=== PATIENT | female | born 1955 | race Caucasian/White ===

== ENCOUNTER 2018-04-24 01:46 | Outpatient (CLI) | payer BC, SELFPAY ==
[2018-04-24 08:36] LABS: Hemoglobin A1C 6.2 % (4.5-6.2)
[2018-04-24 09:32] LABS: ALT 27 U/L (12-78); AST 14 U/L (15-37); Albumin 3.6 g/dL (3.4-5.0); Alkaline Phosphatase 74 U/L (46-116); Anion Gap 6.9 mmol/L (3-11); BUN 12 mg/dL (7-18); Bilirubin, Total 0.4 mg/dL (0.2-1.0); CO2 31.1 mmol/L (21.0-32.0); CREATININE 0.76 mg/dL (0.55-1.02); Calcium 9.2 mg/dL (8.5-10.1); Chloride 103 mmol/L (98-107); Cholesterol 166 mg/dL (50-200); Glucose 110 mg/dL (70-100); HDL Cholesterol 62 mg/dL (40-60); LDL CHOLESTEROL 83 mg/dL (<100); Potassium 4.1 mmol/L (3.5-5.1); Sodium 141 mmol/L (136-145); Total Protein 6.9 g/dL (6.4-8.2); Triglyceride 116 mg/dL (30-150)
== END 2018-04-24 02:06 ==
DX: Z00.00 Encounter for general adult medical examination without abnormal findings
CPT/HCPCS: 36415; 80053; 80061; 83721; 83036

== ENCOUNTER 2018-12-11 15:50 | Outpatient (CLI) | payer BC, SELFPAY ==
--- NOTE | 2018-12-11 16:00 | DI.RAD_ITS ---
SYMPTOM/DIAGNOSIS: LT KNEE INJURY S89.92XA LEFT KNEE: There is mild to moderate narrowing of the medial femoral tibial joint space and mild periarticular spurring. Mild spurring is seen at the tibial spines and lateral tibial plateau. There are also mild to moderate degenerative changes of the patellofemoral joint. IMPRESSION: Mild to moderate degenerative changes.
== END 2018-12-11 16:10 ==
PROVIDERS: Visit Provider Family Medicine
DX: S89.92XA Unspecified injury of left lower leg, initial encounter (principal); M25.562 Pain in left knee; M17.12 Unilateral primary osteoarthritis, left knee
CPT/HCPCS: 73562

== ENCOUNTER 2019-05-14 07:46 | Outpatient (CLI) | payer BC, SELFPAY ==
--- NOTE | 2019-05-14 11:03 | DI.MAMMO_ITS ---
EXAM: MG MAMMO SCREENING CLINICAL HISTORY: screening Z12.39 TECHNIQUE: Bilateral full field digital CC and MLO mammographic images were obtained with 3D tomosyn thesis and utilizing computer aided detection (CAD). COMPARISON: Available for comparison. FINDINGS: Masses/Architectural Distortion: None seen. There is a stable nodule in the upper outer quadrant of t he left breast. Microcalcifications: No suspicious pleomorphic-type are seen. Skin Thickening/Nipple Retraction: None. IMPRESSION: 1. No significant interval change with no specific features of malignancy noted. 2. Unless there is more urgent need, screening mammography is recommended, as per [employer] guidelines. ACR BI-RAD Category- 1 Negative Breast Density - Category B - Scattered areas of fibroglandular density A negative radiographic report should not delay biopsy if a dominant or clinically suspicious mass is present. Up to ten percent of cancers are not identified on mammography. A negative report may reinforce clinical impression. Adenosis and dense breasts may obscure an underlying neoplasm. False positive reports average 6 to 10%. Patient will receive a letter notifying them of these results.
== END 2019-05-14 08:06 ==
PROVIDERS: Visit Provider Nurse Practitioner
DX: Z12.31 Encounter for screening mammogram for malignant neoplasm of breast (principal)
CPT/HCPCS: 77063; 77067

== ENCOUNTER 2019-05-24 01:29 | Outpatient (CLI) | payer BC, SELFPAY ==
[2019-05-24 08:52] LABS: Hemoglobin A1C 6.5 % (4.5-6.2)
[2019-05-24 09:01] LABS: Calculated LDL 92 mg/dL; Cholesterol 180 mg/dL (<200); HDL Cholesterol 71 mg/dL (40-60); Triglyceride 88 mg/dL (<150)
== END 2019-05-24 01:49 ==
PROVIDERS: Visit Provider Nurse Practitioner
DX: E11.9 Type 2 diabetes mellitus without complications (principal); E78.00 Pure hypercholesterolemia, unspecified
CPT/HCPCS: 36415; 80061; 83036

== ENCOUNTER 2020-03-27 13:27 | Outpatient (CLI) | payer BC, SELFPAY ==
--- NOTE | 2020-03-27 09:30 | DI.RAD_ITS ---
EXAM: XR WRIST LT COMP NAVICULAR and XR thumb LT CLINICAL HISTORY: Thumb pain/swelling M79.646 PAIN IN THUMB. TECHNIQUE: 2D digital imaging was performed. COMPARISON: CR ARTHITIS SERIES-DARREN HAND WRIST from 05/06/2014 FINDINGS: BONES: No acute fracture is present. No bony destructive lesion is seen. JOINTS: The carpal bones are normally aligned. Marked degenerative changes are seen at the 1st CMC nura int characterized by joint space narrowing subchondral sclerosis and periarticular spurring. SOFT TISSUE: Normal. 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 Findings have advanced since the prior examination from 05/06/2014. DATA REPOSITORY: RADIATION DOSE DELIVERED:
== END 2020-03-27 13:47 ==
PROVIDERS: Visit Provider Nurse Practitioner Family
DX: M18.12 Unilateral primary osteoarthritis of first carpometacarpal joint, left hand (principal); M79.645 Pain in left finger(s)
CPT/HCPCS: 73110; 73140

== ENCOUNTER 2020-05-22 05:06 | Outpatient (CLI) | payer BC, SELFPAY ==
[2020-05-22 08:34] LABS: Hemoglobin A1C 6.2 % (<5.7)
[2020-05-22 08:58] LABS: Calculated LDL 85 mg/dL (<100); Cholesterol 166 mg/dL (<200); HDL Cholesterol 62 mg/dL (40-60); Triglyceride 97 mg/dL (<150)
[2020-05-22 22:45] LABS: Theophylline 4.8 ug/mL (10.0-20.0)
== END 2020-05-22 05:26 ==
PROVIDERS: Visit Provider Nurse Practitioner
DX: E11.9 Type 2 diabetes mellitus without complications (principal); E78.00 Pure hypercholesterolemia, unspecified; J45.909 Unspecified asthma, uncomplicated; Z51.81 Encounter for therapeutic drug level monitoring
CPT/HCPCS: 36415; 80061; 80198; 83036

== ENCOUNTER 2020-06-11 01:42 | Outpatient (CLI) | payer BC, SELFPAY ==
--- NOTE | 2020-06-11 06:30 | DI.MAMMO_ITS ---
EXAM: MAMMO SCREENING CLINICAL HISTORY: screening,Z12.39 TECHNIQUE: Mammograms were interpreted according to the usual protocol including computer analysis w [employer] CAD system, tomosynthesis and C-view imaging. COMPARISON: FINDINGS: The breasts are of moderate density with fairly symmetrical distribution fibroglandular tissue. No d ominant mass or clumped microcalcification is identified in either breast. The current examination i s compared with previous examinations including May 2019, a stable nodule is again noted in the upper outer quadrant of the left breast. No significant change is seen elsewhere in either breast. IMPRESSION: No specific evidence of malignancy at this time. Routine screening examinations are suggested at yea rly intervals due to the family history of breast carcinoma. BI-RADS Category 2 - Benign Findings Breast Density - Category B - Scattered areas of fibroglandular density
== END 2020-06-11 02:02 ==
PROVIDERS: PCP Nurse Practitioner; Visit Provider Nurse Practitioner
DX: Z12.31 Encounter for screening mammogram for malignant neoplasm of breast (principal); Z80.3 Family history of malignant neoplasm of breast
CPT/HCPCS: 77063; 77067

== ENCOUNTER 2020-07-29 03:08 | Outpatient (CLI) | payer BC, SELFPAY ==
[2020-07-30 13:28] LABS: COVID-19 RT-PCR UVMMC Result Negative (Negative)
== END 2020-07-29 03:09 | disposition home or self-care (01) ==
LOC: LBO 03:09
PROVIDERS: PCP Nurse Practitioner; Visit Provider Surgery
DX: Z20.822 Contact with and (suspected) exposure to COVID-19 (principal); Z01.818 Encounter for other preprocedural examination
CPT/HCPCS: U0003

== ENCOUNTER 2020-08-01 07:18 | Day surgery (SDC) | payer BC, SELFPAY ==
[2020-08-01 07:37] VITALS: BP 126/65; PULSE 72; RESP 16; TEMP 36.4; O2SAT 99
[2020-08-01] MEDS: Lactated Ringers 1,000 ML 80 ML IV (08:00)
--- NOTE | 2020-08-01 08:37 | W.PM.DSUDISC ---
Discharge Plan Disposition Patient Disposition: HOME Condition: Good Discharge Details Reason For Visit: colon scope Attending Provider: Jamila Sellers Primary Care Provider: Olesya Plaza Home Meds and New Rx's Prescriptions: Continued tetracycline 250 mg capsule 250 mg PO DAILY PRN (Reason: [place] - takes intermittently) Qty: 30 RF: 1 ipratropium-albuterol 0.5 mg-3 mg(2.5 mg base)/3 mL solution for nebulization 3 ml Inhalation Q6H PRN Qty: 1 RF: 0 albuterol sulfate [Ventolin HFA] 90 mcg/actuation HFA aerosol inhaler 2 puff inhalation QID PRN (Reason: shortness of breath or wheezing) Qty: 18 RF: 6 famotidine 10 mg tablet 10 mg PO BID Qty: 180 RF: 3 theophylline 400 mg tablet extended release 24 hr 400 mg PO DAILY Qty: 90 RF: 3 metformin 500 mg tablet extended release 24hr 500 mg PO DAILY Qty: 90 RF: 4 budesonide-formoterol [Symbicort] 160-4.5 mcg/actuation HFA aerosol inhaler 2 puff Inhalation BID Qty: 3 RF: 4 atorvastatin 20 mg tablet 20 mg PO DAILY Qty: 90 RF: 4 glucosamine sulfate [Glucosamine] 500 mg tablet 500 mg PO DAILY RF: 0 magnesium 30 mg tablet 60 mg PO DAILY RF: 0 (DME) blood-glucose meter 1 EACH misc 1 ea Miscellaneous twice weekly Qty: 1 RF: 0 (DME) Blood Glucose Test 1 EACH strip 1 ea Miscellaneous DAILY Qty: 100 RF: 3 (DME) lancets 1 EACH misc 1 ea Miscellaneous DAILY Qty: 100 RF: 3 Discontinued polyethylene glycol 3350 17 gram/dose powder 238 g PO ONCE Qty: 238 RF: 0 bisacodyl [Dulcolax (bisacodyl)] 5 mg tablet,delayed release (DR/EC) 5 mg PO ONCE Qty: 4 RF: 0 Discharge Instructions Additional Instructions: Findings:severe diverticula. small polyp Follow up:Will send a letter w/ results of the polyp in 3-4wks. You have severe diverticla. I would not recommend any further colon scopes. The risk of perforation out ways the benefits of routine screening. Please call if you develop: fevers >101.5 Nausea or Vomiting Abdominal pain that is not transient DAY SURGERY UNIT POST COLONOSCOPY INSTRUCTIONS 1. Because there will be medication in your system for the next 24 hours, you may feel a little sleepy. Your coordination will be affected. Therefore: a. Do not drive or operate dangerous equipment for 24 hours. b. Do not drink alcohol beverages for 24 hours (not even beer). c. Plan to go home and rest for the day. 2. Generally there are no restrictions on your activity after a day or so has gone by, but you may feel a bit fatigued for a few days. 3 After you arrive home you may have a light meal and return to a normal diet as you can tolerate it without feeling sick to your stomach. 4. After surgery, you may feel pain or discomfort. This should be only transient, but if it persists please contact your doctor. 5. If there are any questions regarding the findings of your procedure, please feel free to contact your doctor. 6. If you are unable to contact your doctor with a problem, contact the hospital at [phone]. 7. Continue all your regular medications unless directed otherwise. I understand the above instructions and have no questions. Signature of Patient or Responsible Adult Escort Date/Time Name of Responsible Adult Escort Signature of Nurse Date/Time DIVERTICULAR DISEASE OVERVIEW ? A diverticulum is a pouch-like structure that can form through points of weakness in the muscular wall of the colon (ie, at points where blood vessels pass through the wall). Diverticulosis affects men and women equally. The risk of diverticular disease increases with age. It occurs throughout the world but is seen more commonly in developed countries. WHAT IS DIVERTICULAR DISEASE? Diverticulosis ? Diverticulosis merely describes the presence of diverticula. Diverticulosis is often found during a test done for other reasons, such as flexible sigmoidoscopy, colonoscopy, or barium enema. Most people with diverticulosis have no symptoms and will remain symptom free for the rest of their lives. A person with diverticulosis may have diverticulitis, or diverticular bleeding. Diverticulitis ? Inflammation of a diverticulum (diverticulitis) occurs when there is thinning and breakdown of the diverticular wall. This may be caused by increased pressure within the colon or by hardened particles of stool, which can become lodged within the diverticulum. The symptoms of diverticulitis depend upon the degree of inflammation present. The most common symptom is pain in the left lower abdomen. Other symptoms can include nausea and vomiting, constipation, diarrhea, and urinary symptoms such as pain or burning when urinating or the frequent need to urinate. Diverticulitis is divided into simple and complicated forms. ?Simple diverticulitis, which accounts for 75 percent of cases, is not associated with complications and typically responds to medical treatment without surgery. ?Complicated diverticulitis occurs in 25 percent of cases and usually requires surgery. Complications associated with diverticulitis can include the following: ?Abscess ? a localized collection of pus ?Fistula ? an abnormal tract between two areas that are not normally connected (eg, bowel and bladder) ?Obstruction ? a blockage of the colon ?Peritonitis ? infection involving the space around the abdominal organ ?Sepsis ? overwhelming body-wide infection that can lead to failure of multiple organs Diverticular bleeding ? Diverticular bleeding occurs when a small artery located within a diverticulum is eroded and bleeds into the colon. Diverticular bleeding usually causes painless bleeding from the rectum. In approximately 50 percent of cases, the person will see maroon or bright red blood with bowel movements. Is bleeding with a bowel movement normal? ? It is not normal to see blood in a bowel movement; this can be a sign of several conditions, most of which are not serious (eg, hemorrhoids) but some of which are serious and require immediate treatment. Anyone who sees blood after a bowel movement should consult with their healthcare provider to determine if further testing or evaluation is needed. DIVERTICULOSIS AND DIVERTICULITIS DIAGNOSIS ? Diverticulosis is often found during tests performed for other reasons. ?Barium enema ? This is an x-ray study that uses barium in an enema to view the outline of the lower intestinal tract. This is an older test and has been largely replaced by computed tomography (CT) scan. ?Flexible sigmoidoscopy ? This is an examination of the inside of the sigmoid colon with a thin, flexible tube that contains a camera. ?Colonoscopy ? This is an examination of the inside of the entire colon. ?CT scan ? A CT scan is often used to diagnose diverticulitis and its complications. If diverticulitis (not just diverticulosis) is suspected, the above three tests should not be used because of the risk of perforation. TREATMENT Diverticulosis ? People with diverticulosis who do not have symptoms do not require treatment. However, most clinicians recommend increasing fiber in the diet, which can help to bulk the stools and possibly prevent the development of new diverticula, diverticulitis, or diverticular bleeding. Fiber is not proven to prevent these conditions in all patients but may help to control recurrent episodes in some. Increase fiber ? Fruits and vegetables are a good source of fiber. Fiber content of packaged foods can be calculated by reading the nutrition label. Seeds and nuts ? Patients with diverticular disease have historically been advised to avoid whole pieces of fiber (such as seeds, corn, and nuts) because of concern that these foods could cause an episode of diverticulitis. However, this belief is completely unproven. We do not suggest that patients with diverticulosis avoid seeds, corn, or nuts. Diverticulitis ? Treatment of diverticulitis depends upon how severe your symptoms are. Home treatment ? If you have mild symptoms of diverticulitis (mild abdominal pain, usually left lower abdomen), you can be treated at home with a clear liquid diet and oral antibiotics. However, if you develop one or more of the following signs or symptoms, you should seek immediate medical attention: ?Temperature >100.1?F (38?C) ?Worsening or severe abdominal pain ?An inability to tolerate fluids Hospital treatment ? If you have moderate to severe symptoms, you may be hospitalized for treatment. During this time, you are not allowed to eat or drink; antibiotics and fluids are given into a vein. If you develop an abscess of the colon, you may require drainage of the abscess (usually performed by placing a drainage tube across the abdominal wall) or by surgically opening the affected area. Surgery ? If you develop a generalized infection in the abdomen (peritonitis), you will usually require an emergency operation. A two-part operation may be necessary in some cases. ?The first operation involves removal of the diseased colon and creation of a colostomy. A colostomy is an opening between the colon and the skin, where a bag is attached to collect waste from the intestine. The lower end of the colon is temporarily sewed closed to allow it to heal. ?Approximately three to six months later, a second operation is performed to reconnect the two parts of the colon and close the opening in the skin. You are then able to empty your bowels through the rectum. Sometimes patients require up to a year to recover from the first operation, depending on how sick they were. In non-emergency situations, the diseased area of the colon can be removed and the two ends of the colon can be reconnected in one operation, without the need for a colostomy. Surgery versus medical therapy ? An operation to remove the diseased area of the colon may be necessary if you do not improve with medical therapy. After an episode of uncomplicated diverticulitis, elective surgery is generally not required as the risk of another attack or requiring emergency surgery is low. However, patients with persistent symptoms attributable to diverticulitis, a history of complicated diverticulitis, or a compromised immune system should be evaluated for possible surgery to prevent another attack. In such patients, another attack has been associated with a higher risk of complications or . Of course, the decision will also depend in part upon your other medical conditions and ability to undergo surgery. In many cases, an elective operation can be performed laparoscopically, using small incisions, rather than the typical vertical (up and down) abdominal incision. Laparoscopic surgery usually allows you to recover more quickly and shortens the hospital stay. After diverticulitis resolves ? After an episode of diverticulitis resolves, if you have not had a recent colonoscopy, the entire length of the colon should be evaluated to determine the extent of disease and to rule out the presence of abnormal lesions such as polyps or cancer. Recommended tests include colonoscopy, barium enema and sigmoidoscopy, or CT colonography. Diverticular bleeding ? Most cases of diverticular bleeding resolve on their own. However, some people will need further testing or treatment to stop bleeding, which may include a colonoscopy, angiography (a treatment that blocks off the bleeding artery), bleeding scan, or surgery. DIVERTICULAR DISEASE PROGNOSIS Diverticulosis ? Over time, diverticulosis may cause no problems or it may cause episodes of bleeding and/or diverticulitis. Approximately 15 to 25 percent of people with diverticulosis will develop diverticulitis, while 5 to 15 percent will develop diverticular bleeding. Diverticulitis ? Approximately 85 percent of people with uncomplicated diverticulitis will respond to medical treatment, while approximately 15 percent of patients will need an operation. After successful treatment for a first attack of diverticulitis, one-third of patients will remain asymptomatic, one-third will have episodic cramps without diverticulitis, and one-third will go on to have a second attack of diverticulitis. The prognosis tends to remain similar following a second attack of diverticulitis. Only 10 percent of people remain symptom-free after a second attack. Subsequent attacks tend to be of similar severity, not increasing in severity as previously believed. High Fiber Diet What is Dietary Fiber? All fiber comes from plants, bushes, rianna or trees. Of course, the ones that we eat provide us with fruits, vegetables and grains. There are many different types of fiber but the three that are most important to the health of the body are: Insoluble Fiber This fiber does not dissolve in water, nor is it fermented by the bacteria residing in the colon. Rather, it retains water and in so doing, helps to promote a larger, bulkier and more regular bowel activity. This, in turn, may be important in preventing disorder such as diverticulosis and hemorrhoids, and in sweeping out certain toxins and cancer causing carcinogens. Sources of insoluble fiber are: ? whole grain wheat and other whole grains ? corn bran, including popcorn, unflavored and unsweetened ? nuts and seeds ? potatoes and the skins from most fruits from trees such as apples, bananas and avocados ? many green vegetables such as green beans, zucchini, celery and cauliflower ? some fruit plants such as tomatoes and kiwi Soluble Fiber These fibers are fermented or used by the colon bacteria as a food source or nourishment. When these good bacteria grow and thrive, many health benefits occur in both the colon and the body. Soluble fiber is present in some degree in most edible plant foods, but the ones with the most soluble fiber include: ? legumes such as peas and most beans, including soybeans ? oats, rye and barley ? many fruits such as berries, plums, apples bananas and pears ? certain vegetables such as broccoli and carrots ? most root vegetables ? psyllium husk supplement products Prebiotic Soluble Fiber These are relatively newly discovered soluble plant fibers. The technical name for this fiber is inulin or fructan. When these soluble fibers are fermented by the good colon bacteria, some further significant health benefits have been shown to occur by research in many medical centers. These soluble prebiotic fibers occur in significant amounts in: ? asparagus ? yams ? onions ? garlic ? bananas ? leeks ? agave ? chicory and other root vegetables such as [place] artichokes ? wheat, rye and barley (smaller amounts) Benefits of a High Fiber Diet The health benefits of a high fiber diet, consumed on a regular basis and reaching recommended amounts (below), are now fairly well-defined. There are some additional benefits in the early research stage with the prebiotic soluble fibers. What is now known regarding a high fiber diet include: Bowel Regularity A high fiber diet promotes regularity with a softer, bulkier and regular stool pattern. This decreases the chance of hemorrhoids, diverticulosis and perhaps colon cancer. Cholesterol and Reduced Triglycerides The soluble fibers are the ones that will reduce cholesterol levels when used on a regular basis. Psyllium husk and prebiotic soluble fiber will also reduce cholesterol. They may also reduce the incidence of coronary heart disease. Oats, flax seeds and legumes or beans are the recommended fibers. Colon Polyps and Cancer It is still not certain if a high fiber diet helps prevent colon cancer. Considerable research suggests that this may occur. Certainly it makes sense to increase regularity and so speed the movement of cancer causing carcinogens through the bowel. In addition, reducing a heavy meat diet reduces the bile flow from the liver in a favorable way. This, too, reduces the amount of carcinogens that reach and are manufactured in the colon. Finally, a high fiber diet, including prebiotic soluble fiber, increases the integrity and health of the wall of the colon. The risk of cancer may be reduced. Colon Wall Integrity A high fiber diet changes the bacterial makeup of the colon toward a more favorable balance. For instance, it is known that those people with obesity, diabetes type 2 and inflammatory bowel disease have a predominance of bad bacteria in the colon. This, in turn, may render the bowel wall weak and allow bacteria and, indeed, even toxins to seep through. A high fiber diet with a modest reduction in animal and meat products may return the bacterial makeup to a more positive balance. This, in particular, has been seen when the soluble fiber prebiotics are added to the diet. Blood Sugar Soluble fiber such as in legumes (beans), oats and in prebiotic fibers slows the absorption of blood sugar and so helps regulate the sugar in the blood. Insoluble fiber on a regular basis is associated with reduced risk of type 2 diabetes. Weight Loss High fiber diets are more filling and give a sense of fullness sooner than an animal and meat based diet does. In addition, the soluble prebiotic fibers have been shown to turn off the hunger hormones produced in the wall of the gut and to increase the hormones that give a sense of fullness. Those hormones are made in the wall of the gut. New medical research has shown that the bacterial makeup in the colon in overweight people is abnormal to the extent that they manufacture and absorb almost twice the number of calories through the colon wall as do normals. Prebiotic fibers (below) will help change this hormonal balancein a favorable way. Bacteria and the Function of the Colon The colon finishes the digestive process. Hopefully, the waste products move through in a nice regular manner. Insoluble fibers help this process by retaining water and so producing a bulkier, softer stool, which is easy to pass. The additional role of the colon is to provide a home for an enormous number of micro-organisms, mostly bacteria. Recent research has shown that there are over 1,000 species of bacteria with a total bacterial count ten times the number of cells in the body. These bacteria play a major role in keeping the colon wall itself healthy. In addition, these good bacteria produce a very strong immune system for the body. They significantly increase calcium absorption and bone density. They provide other documented benefits. It is the soluble fibers in the diet that are so effective in stimulating the growth of good colon bacteria. How Much is Enough? The amount of fiber in food is measured in grams. National nutritional authorities recommend the following amounts of dietary fiber daily. Under Age 50 Over Age 50 Men 38 grams 30 grams Women 25 grams 21 grams For a week or so, it is best to tally the amount of fiber you are consuming. Boxed and packaged foods will have the amount of fiber per serving on the nutrition label. Which Fibers and Which Foods are Best? As noted, healthy fiber is only found in plants. The three major categories are whole grains, fruits and vegetables. Whole Grains Wheat, oats, barley, wild or brown rice, amaranth, buckwheat, bulgur, corn, millet, quinoa, rye, sorghum, teff and triticals. By far, wheat, oats and wild or brown rice are most common. Always buy whole grain products. White bread, baked goods and rolls almost always are made from wheat flour. Wheat flour is white because most of the fiber, vitamins and other nutrients have been removed. Try not buy enriched grains. What this means is that simple white flour has had vitamins added to it by the corporate risk analyst. The word, enriched, implies a good and healthy product. On the contrary, enriched means that most of the fiber has been removed and a few vitamins added. Fruits Fruits come from trees such as apple and pear or from bushes or rianna. You should eat a wide variety of fruits, preferably with every meal. In many cases, the skin of a fruit such as apple will contain much of the insoluble fiber while the pulp contains most of the soluble fiber. To the extent possible, buy organic fruits as these will have little or no pesticides. Always wash fruit. Vegetables Eat a wide variety of vegetables. They should be a mainstay of lunch and dinners. Frozen vegetables retain as much nutrition and fiber as fresh vegetables. As with fruit, try to buy organic to reduce any residual pesticide ingestion. Wash fresh vegetables thoroughly. Cruciferous vegetables such as broccoli, [place] sprouts and cauliflower contain certain chemicals such as sulforaphane. This substance has very strong anti-cancer properties and should be eaten frequently. Legumes, Beans, Peas and Soybeans These vegetables have plenty of soluble fiber and should be part of a varied vegetable intake. Beans, in particular, contain a certain type of fiber that may lead to harmless gas or bloating. Nuts and Seeds These are rich sources of fiber and are a good substitute for sweets such as candies and baked sweet goods. While nuts and seeds are rich in fiber, they also contain vegetable fat and so can and do add calories. Read the Labels As noted, fresh and frozen foods are usually better. They have good nutrition and few, if any, chemicals added to them. When buying packaged foods and, in particular grains, look for three things: ? The first word on the label should be whole, such as whole wheat or whole grain. ? Check out the calories and the amount of fiber in a serving. ? How many and what other additives or chemicals are added. Fewer is always better. Do you know what each additive does? Some are added not for the benefit of the package lift operator but rather for manufacturers. These could and do include sugar, artificial flavor, chemicals to prevent oxidation and spoilage, emulsifiers to blend the product. You have to be a marketing communication manager. Fiber Facts, Nuggets and Pearls ? For breakfast you can easily get the day started well by using a high fiber, whole grain cereal. Check the labels. Add fruit such as blueberries and bananas. If you are an egg eater, use whole wheat or grain toast. Adding wheat germ gives you a good fiber kick. ? Always use whole grain or wheat with rolls and sandwiches. Does your fast food store not have them? Perhaps you look elsewhere. Eating an occasional black crowe or veggie burger provides variety. ? Snacks should consist of fruit and/or nuts. While nuts are loaded with fiber, they are an energy rich food, meaning they have a lot of calories in a small packet. ? Fruit juices should contain pulp. Clear juices such as clear orange, pear or apple juice contain little fiber and have a lot of fructose. Prune juice is usually high in fiber. ? Homemade soups ? adding fresh or frozen vegetables to a chicken or vegetable stock is a good way to start homemade soup. ? Salads ? adding cooked and then chilled vegetables provide great flavoring to almost any salad. Remember, a wheat salad has lots of cooked corn in it. Small slices of apples or oranges and nuts such as chopped walnuts or sliced almonds always adds taste, variety and fiber to almost any salad. ? Fruit ? Try to eat fruit of some type with almost every meal. ? Rethink how you place the various foods on your dinner plate. Reducing the portions of the meat or animal food portion to the side with equal or more portions of vegetables, legumes and fruits portion always allows for more fiber. There was never anything magic about making the meat or animal food portion the main part of the dinner plate. Eating from smaller plates can, over time, trick your mind and terminal manager habit of using a dinner plate. Again, there is nothing magic in an 11, 12, or 13 inch dinner plate. Fiber Supplements There are a variety of fiber supplements available on the food or pharmacy shelves. Psyllium This soluble plant fiber has been used in [place] for over 2,000 years. It is a soluble fiber with mucilage in it. This acts to retain a lot of water and also is fermented by colon bacteria. When 7 grams a day are used, it does lower cholesterol. Metamucil in various forms is psyllium. Methyl Cellulose All the cellulose products come from finely ground wood chips which are then treated in a variety of ways such as boiling in acids. Methyl cellulose is an insoluble fiber which does dissolve in water. It is also an emulsifier, meaning it blends oils and water. Citrucel is methyl cellulose (MC). MC may not be appropriate for Crohn?s disease or ulcerative colitis as several medical studies have shown that certain emulsifiers dissolve the mucous lining of the colon in animals prone to Crohn?s disease. This then allows bacteria to invade the underlying tissue. Inulin Inulin is a soluble prebiotic fiber found in many foods and which are fermented mostly in the left side of the colon. It is available in a supplement as generic inulin and in Fiber Choice. Oligofructose FOS These are also prebiotic fibers. They are fermented very quickly in the right side of the colon. Prebiotin This product is a combination of oligofructose, which feeds the bacteria in the right side of the colon and inulin, which does the same in the left side of the colon. There seems to be a benefit for this particular formula based on medical research. Prebiotic Soluble Fiber These may be the healthiest of all the soluble fibers. They grow in many plants and have had a great deal of research done on them in the last 10-15 years. These fibers are found in asparagus, yams and other root vegetables such as chicory, garlic, onion, leeks and in smaller amounts in wheat. This research has shown the following: ? Increase in good and decrease in bad colon bacteria ? Increase calcium absorption and enhanced bone mass ? Enhanced immune system ? Appetite and weight control by changing the hormone appetite signals to the brain ? May decrease colon cancer incidence ? Reduce or correct a leaky colon Eating a wide variety of plant food up to the recommended amount will likely give you enough prebiotic fiber. Supplements such as Prebiotin can be added to the diet. Short Chain Fatty Acids (SCFA) Some rather remarkable research findings have shown that one of the benefits of ingesting a lot of soluble fiber, in particular the prebiotic ones, results in larger amounts of SCFAs in the colon. These SCFAs are made by the good bacteria in the colon such as Bifidobacter and Lactobacillus. These small molecules have been shown to do the following: ? Enhance the health and integrity of the colon wall ? Provide nourishment for the cells that actually line the colon ? Increases the acidity of the colon which is a very real health benefit ? Stabilize blood sugar for diabetics ? Reduce blood cholesterol and triglyceride ? Significantly enhance immunity ? May be a benefit for Crohn?s disease and ulcerative colitis patients Fiber and Gas Everyone has intestinal gas and that is a good thing. It means that bacteria, hopefully the good ones, are thriving. The normal amount of flatus passed each day depends on sex and what is eaten. The normal number of flatus is 10-20 times a day. When the bacteria that make intestinal gases are growing, it also means that other good bacteria are using the same fibers to grow and produce multiple health benefits, including the production of healthy short-chain fatty acids. These substances are produced quietly in the colon and produce many health-related outcomes. Soluble fiber should always be used in a gradual manner. If too much is consumed at any one time, then excess, but harmless, intestinal gas can occur. People with irritable bowel syndrome are particularly prone to bloating and mild cramping. In this instance, soluble fiber in the diet or supplement should be used in small doses and increased gradually. Finally, prebiotic fibers tend to cause the production of short-chain fatty acids which acidify the colon. This, in turn, reduces or stops the growth of bacteria that make the smelly hydrogen sulfide gases that produce noxious flatus. People who consume many vegetables with prebiotics or take a prebiotic fiber supplement often have non-odoriferous flatus. Fiber and Irritable Bowel Syndrome Irritable bowel syndrome (IBS) is one of the most common disorders of the lower digestive tract. The symptoms of IBS can be quite varied. They can be a mix of several symptoms such as constipation, diarrhea, crampy abdominal discomfort, bloating and gas. An attack of IBS can be triggered by emotional tension and anxiety, poor dietary habits and certain medications. It is now known that infections in the intestine can lead to long-term IBS symptoms. Increased amounts of fiber in the diet can help relieve the symptoms of irritable bowel syndrome by producing soft, bulky stools. This helps to normalize the time it takes for the stool to pass through the colon. Recent medical research with newer techniques has shown some surprising and dramatic findings for IBS patients. Specifically, there is a very significant and abnormal shift of bacteria from those that provide health benefits to those bad bacteria that we really do not want in the gut. The technical name for this bad group of bacteria is called Firmicutes. Along with this abnormal bacterial collection, there is a smoldering low-grade inflammation in the gut wall that may contribute to symptoms. The goal for IBS patients should be to gradually increase the soluble dietary fibers in the diet so as to promote the growth of good bacteria and so suppress the bad ones along with the associated inflammation. IBS patients need to be careful of the amount of soluble fiber they consume. The reason for this is that, while the good colon bacteria thrive on these fibers and produce health benefits, other gas-forming bacteria may generate excessive but harmless gas and subsequent bloating. Thus, soluble plant fibers or a dietary prebiotic supplement should be taken in small initial doses and then gradually increased to tolerance. Fiber and Colon Polyps/Cancer Colon cancer is a major health problem. This disease is most common in Western cultures. It is not seen very often in rural cultures where the diet is mostly plant based. Usually, colon cancer starts out as a colon polyp, a benign mushroom-shaped growth. In time it grows, and in some people it becomes cancerous. Colon cancer is usually always curable if polyps are removed when found or if surgery is performed at an early stage. It is now known that people can inherit the risk of developing colon cancer, but diet is important, too. As noted, there is a very low rate of colon cancer in residents of countries where grains are unprocessed and retain their fiber. It seems that in the Western world, cancer-containing agents (carcinogens) remain in contact with the colon wall for a longer time and in higher concentrations. So, a large bulky stool may act to dilute these carcinogens by moving them through the bowel more quickly. Less carcinogenic exposure to the colon may mean fewer colon polyps and less cancer. A very current review of the entire world?s literature on the effect of fiber on colon polyps and cancer prevention has shown rather clearly that for every 10 grams of fiber added to the diet, there is a 10% reduction in incidence of colon cancer. So the recommended 30 gram fiber diet would result in a 30% less chance of getting these tumors. There are also substances produced in the colon by the good bacteria that seem to retard certain pre-cancer factors from developing. They are called short-chain fatty acids (SCFA). See above for description of SCFAs. A high fiber diet increases these substances. So, the combination of dietary fiber and the production of short-chain fatty acids have a clear health benefit. Fiber and Diverticulosis Prolonged, vigorous contraction of the colon over a long period of time may result in diverticulosis. This increased pressure causes small and, eventually, larger ballooning pockets to form. These pockets by themselves cause no problem. However, sometimes they become infected (diverticulitis) or even break open (perforate) causing infection or inflammation within the abdomen (peritonitis). A high fiber diet increases the bulk in the stool and thereby reduces the pressure within the colon. By so doing, the formation of pockets may be reduced or possibly even stopped. In the past, many physicians were fearful that seeds as in tomatoes, nuts or berries were harmful and could get inside these pockets and rattle around, causing damage. We now know that this has never been the case and that these foods contain lots of fiber and are actually beneficial for diverticulosis patients. Certain bulking agents such as psyllium are traditional types of bulk producing supplements. Psyllium is a soluble fiber. Combining it with insoluble fiber as in wheat bran or corn bran (no gluten) can enhance this bulking effect even more. A product containing a prebiotic, psyllium and wheat bran is probably a very good combination for bowel regularity. Prebiotin Regularity/Diverticulosis is one such product. Activity:: no liting over 20#'s or strenuous activity x 24 hrs Diet:: small light meals x 24 hrs Discharge Orders Discharge Orders: Discharge Order (Routine); Ordered 08/01/20 Ordered By: Jamila Sellers DS: Diagnosis Discharge Diagnosis (1) Polyp of colon: Status: Acute
--- NOTE | 2020-08-01 08:55 | BOWEL_PTH ---
PATIENT: Josie Mosqueda LOC: [facility] U#:[id number] AGE/SX: 65/F ROOM: RE08/01/[address]: Jamila Sellers : 1955 BED: DIS: 08/01/2020 SPEC #: [id number] RECD: 08/01/20 10:03 STATUS: IRMA REQ #: [id number] LAURYN: 08/01/20 08:[address]: Jamila Sellers DEPT: Surgical Specimen RECD BY: Charla De Los Santos ENTERED: 08/01/20 10:05 SP TYPE: Bowel OTHR DR: Olesya Plaza, PhD [employer] TIER Tissues: 1 - BIOPSY BOWEL Procedures: GROSS AND MICRO LEVEL 4 Comments: [id number]
--- NOTE | 2020-08-01 09:21 | COLE_ITS ---
Date of service: 08/01/20 Time of Service: 09:26 Colonoscopy Report Date of procedure: 08/01/20 Pre-op diagnosis general: A. polyps Post-op diagnosis procedure note: same (divertic ) Surgeon: Jamila Sellers Anesthesia proc note operative: GETA Estimated blood loss (mL): 1 Pathology: other Complications: None Disposition: same day Prep: Miralax/Dulcolax Retraction Time: 10mins Procedure Description: After informed consent was obtained the patient was taken to the procedure room and placed in a left decubitous position. Monitors were applied and a time out was done. The patients name, date of , procedure, allergies to medications and metal in their body was reviewed. The patient was then sedated. Once sedated and comfortable a rectal exam was done. External exam was normal. Internal exam revealed a normal sphincter tone and no palpable masses. The scope was then introduced and retrofelexed. Grade I internal hemorrhoids were identified. The scope was then advanced to the cecum w/out difficulty. Th e TI and appendiceal orifice were identified. The prep was good. The scope was then slowly retracted over 10mins minutes back into the rectum. There is a small fatemeh polyp <5mm at cecum. That is removed w/ cold forcept in one bite. Shehas severe diverticula, that extend from the sigmoid all the way the ceum. ther is no active bleeding or infection. There are mult lg diverticula throughout the whole colon. The scope was removed and the patient was woken up and taken back to Same day surgery in stable condition. The patient tolerated the procedure well and there were no immediate comp lications. Follow up: The patient should not have any more routine screening colonoscopies, unless they develop changes in bowel habits or other new gastrointestinal complaints. Because of the severity of her diverticula, the benefits of routine screening do not outweigh the risks of perforation.
[2020-08-01 09:38] VITALS: BP 120/63; PULSE 67; RESP 16; TEMP 36; O2SAT 100
== END 2020-08-01 10:20 | disposition home or self-care (01) ==
PROVIDERS: PCP Nurse Practitioner; Visit Provider Surgery
PROC: 0DJD8ZZ Inspection of Lower Intestinal Tract, Via Natural or Artificial Opening Endoscopic (ICD-10-PCS; CPT 45378; principal; 2020-08-01 08:30)
DX: Z12.11 Encounter for screening for malignant neoplasm of colon (principal); D12.0 Benign neoplasm of cecum; Z86.010 Personal history of colon polyps; K21.9 Gastro-esophageal reflux disease without esophagitis; J45.909 Unspecified asthma, uncomplicated; E78.5 Hyperlipidemia, unspecified
CPT/HCPCS: 45378; 88305; J2001

== ENCOUNTER 2021-06-26 02:44 | Outpatient (CLI) | payer BC, SELFPAY ==
--- NOTE | 2021-06-26 07:30 | DI.DEXA_ITS ---
Exam(s) XR DEXA BONE DENSITY W/WO JOHNNY EXAM: XR DEXA BONE DENSITY W/WO JOHNNY CLINICAL HISTORY: screenING FOR OSTEOPOROSIS IN POSTMENOPAUSAL WOMAN,Z78.0 TECHNIQUE: Routine DEXA evaluation of the lumbar spine, hip, or forearm. COMPARISON: Prior DEXA scan 2010 was reviewed FINDINGS: Performed on a [employer] unit. Lateral image: No compression fracture evident. Lumbar Spine total T-score: -1.1. Prior 2011 reading was -1.4 Hip total T-score:0.2. Prior 2011 reading was 1.3 Independent reading at the level of the femoral neck yields at T-score of -2.1. Forearm total T-score: -2.7 IMPRESSION: Bone mineral density measures in the osteopenia range. Fracture risk is moderate. Note: Any spine fracture indicates 5x risk for subsequent spine fracture and 2x risk for subsequent h ip fracture. World Health Organization criteria for BMD interpretation classify patients: Normal...... T- Score at or above -1.0 Osteopenic... T- Score between -1.0 and -2.5 Osteoporosis... T-Score at or below -2.5
--- NOTE | 2021-06-26 13:33 | DI.MAMMO_ITS ---
Exam(s) MAMMO SCREENING EXAM: MAMMO SCREENING CLINICAL HISTORY: screening,Z12.39. TECHNIQUE: Bilateral full field digital CC and MLO mammographic images were obtained with 3D tomosyn thesis and utilizing computer aided detection (CAD). COMPARISON: Prior mammograms dating back to 2012, the most recent being May 2020. FINDINGS: No new significant radiograph findings in left breast. Stable benign-appearing nodule in the left br east is unchanged from prior studies. In the right breast there is a subtle suggestion nodule on 3D imaging located 5 cm from the nipple, l ateral of center the cc view and measuring approximately 5 x 4 millimeters. There are no malignant-appearing microcalcification groups is region or elsewhere in either breast. There is no significant architectural distortion nor skin thickening-retraction. IMPRESSION: 1. No radiographic evidence of malignancy in left breast. 2. Asymmetric density-possible nodule in the right breast, slightly medial of center. Spot compressi on CC view and ultrasound recommended. BI-RADS Category 0 - Assessment Incomplete: Need additional imaging evaluation Breast Density - Category B - Scattered areas of fibroglandular density Breast density Category C or D implies that the patient has dense breast tissue. Dense breast tissue can make it harder to find cancer on a mammogram. Dense breast tissue is also associated with an incr eased risk of breast cancer. This information about the result of the mammogram report was provided to the patient to raise their awareness. Use this report when you speak with the patient about their risks for breast cancer, which includes their family history. At that time, you may recommend additional screening tests (Ultrasoun d or MRI) as these tests may add significant information. A negative radiographic report should not delay biopsy if a dominant or clinically suspicious mass is present. Up to ten percent of cancers are not identified on mammography. A negative report may reinforce clinical impression. Adenosis and dense breasts may obscure an underlying neoplasm. False positive reports average 6 to 10%. Patient will receive a letter notifying them of these results.
== END 2021-06-26 03:04 ==
PROVIDERS: PCP Nurse Practitioner; Visit Provider Nurse Practitioner
DX: Z78.0 Asymptomatic menopausal state (principal); E11.9 Type 2 diabetes mellitus without complications; E78.00 Pure hypercholesterolemia, unspecified; Z12.31 Encounter for screening mammogram for malignant neoplasm of breast; Z13.820 Encounter for screening for osteoporosis; M85.89 Other specified disorders of bone density and structure, multiple sites; R92.8 Other abnormal and inconclusive findings on diagnostic imaging of breast
CPT/HCPCS: 77063; 77067; 77080

== ENCOUNTER 2021-06-30 01:11 | Outpatient (CLI) | payer BC, SELFPAY ==
--- NOTE | 2021-06-30 | DI.MAMMO_ITS ---
Exam(s) MG MAMMO SCREEN CALL BACK UNI US BREAST RT LIMITED EXAM: MG MAMMO SCREEN CALL BACK UNI RIGHT AND LIMITED RIGHT BREAST ULTRASOUND CLINICAL HISTORY: F/U MAMMO, SUBTLE SUGGESTION RT ONDULE,ASYMMETRIC DENSITY. TECHNIQUE: Unilateral spot mammographic images obtained with 3D tomosynthesisand utilizing computer aided detection (CAD). . Limited right breast Ultrasound was also performed. COMPARISON: Prior mammograms were reviewed. This additional imaging was performed due to findings described on the recent screening mammogram of 06/26/2021. FINDINGS: Additional mammographic view performed todayrender this area less concerning. Ultrasound performed today reveals no significant focal findings. IMPRESSION: No radiographic evidence of malignancy. No focal findings on ultrasound Appropriate follow-up is to keep this patient yearly mammogram schedule, with earlier imaging if a s elf detected breast change is noted. The patient was informed of these findings and recommendations prior to leaving the department today. BI-RADS Category 2 - Benign Findings Breast Density - Category B - Scattered areas of fibroglandular density Breast density Category C or D implies that the patient has dense breast tissue. Dense breast tissue can make it harder to find cancer on a mammogram. Dense breast tissue is also associated with an incr eased risk of breast cancer. This information about the result of the mammogram report was provided to the patient to raise their awareness. Use this report when you speak with the patient about their risks for breast cancer, which includes their family history. At that time, you may recommend additional screening tests (Ultrasoun d or MRI) as these tests may add significant information. A negative radiographic report should not delay biopsy if a dominant or clinically suspicious mass is present. Up to ten percent of cancers are not identified on mammography. A negative report may reinforce clinical impression. Adenosis and dense breasts may obscure an underlying neoplasm. False positive reports average 6 to 10%. Patient will receive a letter notifying them of these results.
== END 2021-06-30 01:31 ==
PROVIDERS: PCP Nurse Practitioner; Visit Provider Nurse Practitioner
DX: R92.8 Other abnormal and inconclusive findings on diagnostic imaging of breast (principal)
CPT/HCPCS: 76642; 77063; 77067

== ENCOUNTER 2022-06-08 10:02 | Outpatient (REF) | payer BC, SELFPAY ==
--- NOTE | 2022-06-08 09:00 | PAPFT_PTH ---
PATIENT: Josie Mosqueda LOC: [facility] #:[id number] AGE/SX: 66/F ROOM: RE06/08/[address]: Lily Malagon NP : 1955 BED: DIS: 06/08/2022 SPEC #: [id number] RECD: 06/08/22 12:47 STATUS: IRMA REFernando #: [id number] LAURYN: 06/08/22 09:[address]: Lily Malagon DEPT: [facility] Cytology RECD BY: Giovanna Alamo Tissues: 1 - CX/ENDOCX FOR PAP SMEARS Procedures: PAP THIN PREP/UVM Screening HPV DNA PROBE Comments: [id number]
== END 2022-06-08 10:03 | disposition home or self-care (01) ==
LOC: LBN 10:02
PROVIDERS: PCP Nurse Practitioner Family; Visit Provider Nurse Practitioner Family
DX: Z12.4 Encounter for screening for malignant neoplasm of cervix (principal); Z11.51 Encounter for screening for human papillomavirus (HPV); R87.810 Cervical high risk human papillomavirus (HPV) DNA test positive
CPT/HCPCS: 88142; 87624

== ENCOUNTER 2022-09-28 10:46 | Outpatient (REF) | payer BC, MEDICARE, SELFPAY ==
--- NOTE | 2022-09-28 08:15 | PAPFT_PTH ---
PATIENT: Josie Mosqueda LOC: [facility] #:[id number] AGE/SX: 67/F ROOM: RE09/28/[address]: Lily Malagon NP : 1955 BED: DIS: 09/28/2022 SPEC #: [id number] RECD: 09/28/22 13:04 STATUS: IRMA REFernando #: [id number] LAURYN: 09/28/22 08:[address]: Lily Malagon DEPT: [facility] Cytology RECD BY: Giovanna Alamo Tissues: 1 - CX/ENDOCX FOR PAP SMEARS Procedures: PAP THIN PREP/UVM Screening HPV DNA PROBE Comments: [id number] (HPV 16 & 18/45)
== END 2022-09-28 10:47 | disposition home or self-care (01) ==
LOC: LBN 10:46
PROVIDERS: PCP Nurse Practitioner Family; Visit Provider Nurse Practitioner Family
DX: Z12.4 Encounter for screening for malignant neoplasm of cervix (principal); Z11.51 Encounter for screening for human papillomavirus (HPV); R87.810 Cervical high risk human papillomavirus (HPV) DNA test positive
CPT/HCPCS: 88142; 87624

== ENCOUNTER 2023-03-07 02:21 | Outpatient (CLI) | payer BC, SELFPAY ==
[2023-03-07 12:26] LABS: Abs Immature Grans 0.02 10^3/uL (0.0-0.06); Absolute Basophil Count 0.04 10^3/uL (0.0-0.2); Absolute Eosinophil Count 0.17 10^3/uL (0.0-0.7); Absolute Lymphocyte Count 3.48 10^3/uL (1.2-3.4); Absolute Monocyte Count 0.57 10^3/uL (0.1-0.8); Absolute Neutrophil Count 3.07 10^3/uL (1.2-6.7); Basophils % 0.5; Eosinophils % 2.3; HCT 40.9 % (36.0-46.0); HGB 13.3 g/dL (11.2-15.7); Immature Grans % 0.3; Lymphocytes % 47.3; MCH 31.7 pg (27.0-33.0); MCHC 32.5 % (32.0-36.0); MCV 98 fL (80-95); MPV 9.9 fL (8.0-11.0); Monocytes % 7.8; Neutrophils % 41.8; Platelet Count 285 10^3/uL (130-400); RBC 4.19 10^6/uL (3.93-5.22); RDW 14.8 % (11.7-14.6); RDW-SD 53.4 fL; WBC 7.35 10^3/uL (4.4-10.8)
[2023-03-07 12:49] LABS: ALT 25 U/L (14-59); AST 16 U/L (15-37); Albumin 3.4 g/dL (3.4-5.0); Alkaline Phosphatase 72 U/L (46-116); Anion Gap 7.6 mmol/L (3-11); BUN 19 mg/dL (7-18); Bilirubin, Total 0.4 mg/dL (0.2-1.0); CO2 28.4 mmol/L (21.0-32.0); CREATININE 0.8 mg/dL (0.55-1.02); Calcium 9.3 mg/dL (8.5-10.1); Calculated LDL 150 mg/dL (<100); Chloride 103 mmol/L (98-107); Cholesterol 236 mg/dL (<200); Estimated GFR 81.72 (mL/min/1.73m2); Glucose 118 mg/dL (74-106); HDL Cholesterol 67 mg/dL (40-60); Potassium 3.8 mmol/L (3.5-5.1); Sodium 139 mmol/L (136-145); TSH (W/Ref FT4) 5.48 uIU/mL (0.36-3.74); Triglyceride 98 mg/dL (<150)
[2023-03-07 13:06] LABS: Hemoglobin A1C 6.2 % (<5.7)
[2023-03-07 13:48] LABS: FREE T4 0.93 ng/dL (0.76-1.46)
== END 2023-03-07 02:22 | disposition home or self-care (01) ==
LOC: LOS 02:21
PROVIDERS: PCP Nurse Practitioner Family; Visit Provider Nurse Practitioner Family
DX: E11.9 Type 2 diabetes mellitus without complications (principal); E78.00 Pure hypercholesterolemia, unspecified; J45.909 Unspecified asthma, uncomplicated; K21.00 Gastro-esophageal reflux disease with esophagitis, without bleeding; L71.9 Rosacea, unspecified; M19.90 Unspecified osteoarthritis, unspecified site; Z00.00 Encounter for general adult medical examination without abnormal findings
CPT/HCPCS: 36415; 80053; 80061; 83036; 84439; 84443; 85025

== ENCOUNTER → 2023-06-10 01:51 | Outpatient (CLI) | payer BC, SELFPAY ==
--- NOTE | 2023-06-10 09:00 | DI.MAMMO_ITS ---
Exam(s) MAMMO SCREENING EXAM: MAMMO SCREENING CLINICAL HISTORY: screening, Z12.39. TECHNIQUE: Bilateral full field digital CC and MLO mammographic images were obtained with 3D tomosyn thesis and utilizing computer aided detection (CAD). COMPARISON: Prior mammograms were reviewed. FINDINGS: There has been no significant change in the appearance and distribution of the fibroglandular tissue. Benign-appearing nodule lateral of center in left breast is unchanged from all prior mammograms datin g back to at least 2014. There are no new spiculated masses nor malignant appearing microcalcification groups. There is no significant architectural distortion nor skin thickening-retraction. IMPRESSION: No radiographic evidence of malignancy. BI-RADS Category 1 - Negative Breast Density - Category B - Scattered areas of fibroglandular density Breast density Category C or D implies that the patient has dense breast tissue. Dense breast tissue can make it harder to find cancer on a mammogram. Dense breast tissue is also associated with an incr eased risk of breast cancer. This information about the result of the mammogram report was provided to the patient to raise their awareness. Use this report when you speak with the patient about their risks for breast cancer, which includes their family history. At that time, you may recommend additional screening tests (Ultrasoun d or MRI) as these tests may add significant information. A negative radiographic report should not delay biopsy if a dominant or clinically suspicious mass is present. Up to ten percent of cancers are not identified on mammography. A negative report may reinforce clinical impression. Adenosis and dense breasts may obscure an underlying neoplasm. False positive reports average 6 to 10%. Patient will receive a letter notifying them of these results.
== END ==
PROVIDERS: PCP Nurse Practitioner Family; Visit Provider Nurse Practitioner Family
DX: Z12.31 Encounter for screening mammogram for malignant neoplasm of breast (principal)
CPT/HCPCS: 77063; 77067

== ENCOUNTER 2023-10-25 05:18 | Outpatient (CLI) | payer BC, SELFPAY ==
[2023-10-25 12:14] LABS: Abs Immature Grans 0.02 10^3/uL (0.0-0.06); Absolute Basophil Count 0.01 10^3/uL (0.0-0.2); Absolute Lymphocyte Count 1.53 10^3/uL (1.2-3.4); Absolute Monocyte Count 0.28 10^3/uL (0.1-0.8); Basophils % 0.2 %; HCT 41.5 % (36.0-46.0); HGB 13.4 g/dL (11.2-15.7); Immature Grans % 0.3 %; MCH 31.8 pg (27.0-33.0); MCHC 32.3 % (32.0-36.0); MCV 99 fL (80-95); MPV 9.9 fL (8.0-11.0); Monocytes % 4.2 %; Neutrophils % 72.3 %; Platelet Count 297 10^3/uL (130-400); RBC 4.21 10^6/uL (3.93-5.22); RDW-SD 54.6 fL; WBC 6.64 10^3/uL (4.4-10.8)
[2023-10-25 12:49] LABS: Anion Gap 8.9 mmol/L (3-11); BUN 12 mg/dL (7-18); CO2 28.1 mmol/L (21.0-32.0); CREATININE 0.8 mg/dL (0.55-1.02); Calcium 9.4 mg/dL (8.5-10.1); Chloride 105 mmol/L (98-107); Estimated GFR 81.21 (mL/min/1.73m2); Glucose 238 mg/dL (74-106); NT-proBNP 96 pg/mL (<300); Potassium 4.1 mmol/L (3.5-5.1); Sodium 142 mmol/L (136-145); TSH (W/Ref FT4) 2.24 uIU/mL (0.36-3.74)
[2023-10-25 13:48] LABS: Lab Add On Test DONE
[2023-10-25 14:17] LABS: Hemoglobin A1C 6.6 % (<5.7)
== END 2023-10-25 05:19 | disposition home or self-care (01) ==
LOC: LOS 05:18
PROVIDERS: PCP Nurse Practitioner Family; Visit Provider Nurse Practitioner Family
DX: E11.9 Type 2 diabetes mellitus without complications (principal); R06.09 Other forms of dyspnea
CPT/HCPCS: 36415; 80048; 83036; 83880; 84443; 85025

== ENCOUNTER 2024-05-31 02:45 | Outpatient (CLI) | payer BC, SELFPAY ==
[2024-05-31 08:01] LABS: HCT 41.3 % (36.0-46.0); HGB 13.3 g/dL (11.2-15.7); MCH 31.9 pg (27.0-33.0); MCHC 32.2 % (32.0-36.0); MCV 99 fL (80-95); MPV 9.1 fL (8.0-11.0); Platelet Count 239 10^3/uL (130-400); RBC 4.17 10^6/uL (3.93-5.22); RDW 14.5 % (11.7-14.6); RDW-SD 52.5 fL; WBC 7.53 10^3/uL (4.4-10.8)
[2024-05-31 08:16] LABS: Hemoglobin A1C 6.3 % (<5.7)
[2024-05-31 08:40] LABS: ALT 23 U/L (14-59); AST 10 U/L (15-37); Albumin 3.5 g/dL (3.4-5.0); Alkaline Phosphatase 71 U/L (46-116); Anion Gap 5.6 mmol/L (3-11); BUN 13 mg/dL (7-18); Bilirubin, Total 0.47 mg/dL (0.2-1.0); CO2 32.4 mmol/L (21.0-32.0); CREATININE 0.8 mg/dL (0.55-1.02); Calcium 9.4 mg/dL (8.5-10.1); Calculated LDL 77 mg/dL (<100); Chloride 105 mmol/L (98-107); Cholesterol 178 mg/dL (<200); Estimated GFR 81.21 (mL/min/1.73m2); Glucose 124 mg/dL (74-106); HDL Cholesterol 74 mg/dL (40-60); Potassium 3.9 mmol/L (3.5-5.1); Sodium 143 mmol/L (136-145); Total Protein 6.9 g/dL (6.4-8.2); Triglyceride 135 mg/dL (<150)
== END 2024-05-31 02:46 | disposition home or self-care (01) ==
PROVIDERS: PCP Nurse Practitioner Family; Visit Provider Nurse Practitioner Family
DX: Z00.00 Encounter for general adult medical examination without abnormal findings (principal); E78.00 Pure hypercholesterolemia, unspecified; E11.9 Type 2 diabetes mellitus without complications
CPT/HCPCS: 36415; 80053; 80061; 85027; 83036

== ENCOUNTER 2024-06-12 01:28 | Outpatient (CLI) | payer BC, SELFPAY ==
--- NOTE | 2024-06-12 06:30 | DI.RAD_ITS ---
Exam(s) XR HIP RT COMPLETE AP PELVIS EXAM: XR HIP RT COMPLETE AP PELVIS CLINICAL HISTORY: chronic rt hip pain,m25.551. TECHNIQUE: 2D digital imaging was performed. Two views COMPARISON: No exams were available for comparison FINDINGS: BONES: No acute fracture is present. No bony destructive lesion is seen. Enthesophytes at the greater trochanters and left lesser trochanter. JOINTS: No dislocation present. Moderate to severe narrowing of the right hip joint space. Periart icular spurring. Subchondral cyst formation. The left hip joint space is maintained. SOFT TISSUE: Normal. 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 DATA REPOSITORY: RADIATION DOSE DELIVERED:
== END 2024-06-12 01:48 ==
LOC: DI 01:28
PROVIDERS: PCP Nurse Practitioner Family; Visit Provider Nurse Practitioner Family
DX: M16.11 Unilateral primary osteoarthritis, right hip (principal)
CPT/HCPCS: 73502

== ENCOUNTER 2024-06-18 08:22 | Emergency (ER) | payer MEDICARE, OTHER, SELFPAY ==
[2024-06-18] VITALS (21 sets, daily range): BP systolic 148–170; BP diastolic 69–80; PULSE 66–85; RESP 20; TEMP 36.4; O2SAT 92–98
--- NOTE | 2024-06-18 08:45 | DI.CT_ITS ---
Exam(s) CT CHEST/ABD/PEL W EXAM: CT CHEST/ABD/PEL W CLINICAL HISTORY: lt sternal, flank pain, LUQ, and rib pain pst fall TECHNIQUE: Imaging Protocol: Axial computed tomography images with coronal and sagittal reformatted images were created and reviewed. Lung Computer Aided Detection (CAD) was utilized. CONTRAST MATERIAL: Intravenous: Omnipaque 350 contrast volume:75 mL Oral: No COMPARISON: No exams were available for comparison FINDINGS: CHEST: Tracheobronchial tree: Patent where visualized. No evidence of bronchiectasis. Pulmonary parenchyma: No consolidation or dominant measurable mass. No architectural distortion. Visualized thyroid gland: Unremarkable. Mediastinum and Alexandra: No dominant adenopathy or fluid collection. The esophagus is unremarkable. Pleura: No effusion or pneumothorax. Heart: The heart is not dilated. Single-vessel coronary artery calcification is present. No pericard ial effusion. Pulmonary arteries: Due to the timing of the bolus, there is suboptimal evaluation of the peripheral pulmonary arteries. No large central pulmonary embolism is present. Aorta: Thoracic aorta non-dilated. No evidence of dissection. Atherosclerotic calcification is prese nt. Lymph nodes: Within normal limits. Soft tissues: Unremarkable. Bones:Within normal limits for the patient's age. There is some irregularity of the cortices of the anterior aspects of the left 4th, 5th and 6th rib suspicious for nondisplaced fractures. There is no evidence of a sternal fracture. ABDOMEN: Liver: Normal density. No measurable mass. Portal, Superior Mesenteric, and Splenic Veins: Unremarkable. Gallbladder and Biliary Tract: No radiodense calculus or dilation. Pancreas: Normal density, no abnormal calcifications or inflammatory process. There is a 2.3 cm cyst in the tail of the pancreas. Nonemergent MRI of the pancreas is recommended for further evaluation. Spleen: Normal. Adrenals: No masses seen. Kidneys: Normal size, contour and axis. No radiodense stones or obstructive uropathy. No masses seen. Note is made of a retroaortic left renal vein. Abdominal Aorta: Abdominal portion non-dilated. Atherosclerotic calcification is present. Bowel: There is diverticulosis of the colon without evidence of acute diverticulitis. There is no estrada wel wall thickening or obstruction. Appendix is unremarkable. Peritoneal Cavity: No ascites, collection or mesenteric inflammatory response. No free air. Lymph Nodes: Within normal limits. Bones: Within normal limits for the patient's age. Soft Tissues: Unremarkable. PELVIS: Bladder: Symmetric distention, no gross wall thickening. Reproductive Organs: Unremarkable as visualized. Lymph Nodes: Within normal limits. Bones: Within normal limits. IMPRESSION: 1. Irregularity the cortex of the anterior aspect of the left 4th, 5th and 6th ribs suspicious for no ndisplaced fractures. No evidence of a pneumothorax or pleural effusion. 2. No acute pulmonary process. 3. No acute abdominal or pelvic process. 4. 2.3 cm cyst in the tail of the pancreas. Nonemergent MRI of the pancreas is recommended for [facility] er evaluation. Unexpected findings RADIATION DOSE DELIVERED: 600.86mGy.cm Total DLP DATA REPOSITORY: All CT scans at this facility are submitted to the National Radiology Data Registry (NRDR) Dose Index Registry (DIR) with the [employer] [place] [employer] (ACR). RADIATION OPTIMIZATION: All CT scans at this facility use at least one of these dose optimization te chniques: automated exposure control; mA and/or kV adjustment per patient size (includes targeted exa ms where dose is matched to clinical indication); or iterative reconstruction.
[2024-06-18] MEDS: Normal Saline - Diluent 50 ML VIAL IJ (09:10)
[2024-06-18 09:11] LABS: Abs Immature Grans 0.05 10^3/uL (0.0-0.06); Absolute Basophil Count 0.02 10^3/uL (0.0-0.2); Absolute Eosinophil Count 0.01 10^3/uL (0.0-0.7); Absolute Lymphocyte Count 2.13 10^3/uL (1.2-3.4); Absolute Neutrophil Count 8.06 10^3/uL (1.2-6.7); Basophils % 0.2 %; Eosinophils % 0.1 %; HCT 39.2 % (36.0-46.0); HGB 13.1 g/dL (11.2-15.7); Immature Grans % 0.4 %; Lymphocytes % 18.9 %; MCH 32.5 pg (27.0-33.0); MCHC 33.4 % (32.0-36.0); MCV 97 fL (80-95); MPV 9.7 fL (8.0-11.0); Monocytes % 8.9 %; Neutrophils % 71.5 %; Platelet Count 254 10^3/uL (130-400); RBC 4.03 10^6/uL (3.93-5.22); RDW 14.6 % (11.7-14.6); RDW-SD 53.1 fL; WBC 11.27 10^3/uL (4.4-10.8)
[2024-06-18] MEDS: Omnipaque 350 MG/ML 100 ML BTL 75 ML IJ (09:11)
[2024-06-18] MEDS: ACETAMINOPHEN 500 MG/50 ML BAG 200 MG IVPB (09:17)
[2024-06-18] MEDS: MORPHine 10 MG/ML VIAL 2 MG IVP (09:18)
[2024-06-18 09:44] LABS: ALT 26 U/L (14-59); AST 16 U/L (15-37); Albumin 3.5 g/dL (3.4-5.0); Alkaline Phosphatase 67 U/L (46-116); Anion Gap 5.3 mmol/L (3-11); BUN 15 mg/dL (7-18); CO2 30.7 mmol/L (21.0-32.0); CREATININE 0.8 mg/dL (0.55-1.02); Chloride 106 mmol/L (98-107); Estimated GFR 81.21 (mL/min/1.73m2); Glucose 161 mg/dL (74-106); Lipase 25 U/L (<78); Potassium 3.4 mmol/L (3.5-5.1); Sodium 142 mmol/L (136-145); Total Protein 7.1 g/dL (6.4-8.2)
--- NOTE | 2024-06-18 09:45 | RT.EKG_ITS ---
APPROVED REPORT Exam: Resting ECG Reason for Exam: chest pain Patient Location: E HR:67 bpm ECG Measurements Heart Rate 67 AXIS PA 161 P 40 QRSd 82 QRS 31 QT 412 T 36 QTc 436 Conclusion Sinus rhythm...normal P axis, V-rate 60- 99 I have reviewed and interpreted ECG and agree with software generated interpretation.
--- NOTE | 2024-06-18 09:45 | ED.GENADUL_ITS ---
Discharge Plan Disposition Patient Disposition: Home Discharge Details Clinical Impression: Multiple rib fractures, Cyst of pancreas Primary Care Provider: Lily Malagon ED Provider: Giovanna Hinson Home Meds and New Rx's Prescriptions: New morphine 15 mg tablet 15 mg PO BID PRNQty: 10 0RF Continued albuterol sulfate [Ventolin HFA] 90 mcg/actuation HFA aerosol inhaler 2 puff inhalation QID PRN (Reason: shortness of breath or wheezing) Qty: 8.5 6RF atorvastatin 20 mg tablet 20 mg PO QHS Qty: 90 3RF budesonide-formoterol [Symbicort] 160-4.5 mcg/actuation HFA aerosol inhaler 2 puff Inhalation BID Qty: 3 4RF ipratropium-albuterol 0.5 mg-3 mg(2.5 mg base)/3 mL solution for nebulization 3 ml Inhalation Q6H PRN Qty: 1 0RF metformin 500 mg tablet extended release 24hr 500 mg PO DAILY Qty: 90 4RF tetracycline 250 mg capsule 250 mg PO DAILY PRN (Reason: Roseacia - takes intermittently) Qty: 30 1RF theophylline 400 mg tablet extended release 24 hr 400 mg PO DAILY Qty: 90 4RF Rx Instructions: Note change from twice a day dosing to once a day. furosemide 20 mg tablet 20 mg PO QAM PRN (Reason: edema) Qty: 30 1RF glucosamine sulfate [Glucosamine] 500 mg tablet 500 mg PO DAILY Rx Instructions: administer with a meal magnesium 30 mg tablet 60 mg PO DAILY (DME) blood-glucose meter 1 EACH misc 1 ea Miscellaneous twice weekly Qty: 1 Rx Instructions: FOR ONE TOUCH ULTRA MINI DIAGNOSIS CODE 250.02 (DME) Blood Glucose Test 1 EACH strip 1 ea Miscellaneous DAILY Qty: 100 Rx Instructions: FOR ONE TOUCH ULTRA MINI METER. PT DOES NOT USE INSULIN. DIAGNOSIS CODE 250.02 (DME) lancets 28 gauge misc 1 ea Miscellaneous DAILY Qty: 100 3RF Rx Instructions: delica- NO INSULIN. DIAGNOSIS CODE 250.02 once daily prednisone 20 mg tablet 40 mg PO DAILY Patient Comments: TAKE TWO TABLETS BY MOUTH EVERY DAY FOR 5 DAYS Discharge Instructions Instructions: Rib fractures in adults Additional Instructions: Use the spirometer at least 12 times daily Take the morphine as needed for pain motrin/ tylenol for pain control Make sure you take full inhalation exhalation at least 12 hours a day with the spirometer Return with worsening shortness of breath, fever, chills, or with any new or worsening complaints Please follow-up with your primary care physician in 1 to 2 days for reassessment Continue on all your asthma medications present he is what he wanted Referrals: Lily Malagon NP [Primary Care Provider] - 2 days Discharge Data Discharge Date/Time-TO BE ENTERED AT DEPARTURE: 06/18/24 11:36 HPI General Date/Time Provider Initiated Documentation: 06/18/24 08:33 . HPI Narrative: This 68-year-old female presents with report of headache rib pain after a fall. Patient fell on 16 June of her stool and landing on her stomach and left side. She has had worsening pain since that time and has a history of asthma so was concerned as she has had some trouble breathing. She denies any head injury or any additional complaints at this time. She denies any hemoptysis. Related Data Home Medications ?Medication ?Instructions ?Recorded ?Confirmed blood sugar diagnostic (Blood #100 strips 06/10/14 06/18/24 Glucose Test strips) blood-glucose meter #1 ea 06/10/14 06/18/24 glucosamine sulfate 500 mg tablet 500 mg PO DAILY 07/18/20 06/18/24 (Glucosamine) magnesium 30 mg tablet 60 mg PO DAILY 07/18/20 06/18/24 lancets 28 gauge #100 ea 04/10/21 06/18/24 albuterol sulfate 90 mcg/actuation 2 puff inhalation QID PRN 06/11/24 06/18/24 aerosol inhaler (Ventolin HFA) shortness of breath or wheezing #8.5 grams atorvastatin 20 mg tablet 20 mg PO QHS #90 tabs 06/11/24 06/18/24 budesonide-formoterol HFA 160 2 puff inhalation BID ##3 06/11/24 06/18/24 mcg-4.5 mcg/actuation aerosol inhaler (Symbicort) furosemide 20 mg tablet 20 mg PO QAM PRN edema #30 tabs 06/11/24 06/18/24 ipratropium 0.5 mg-albuterol 3 mg 3 ml inhalation Q6H PRN ##1 06/11/24 06/18/24 (2.5 mg base)/3 mL nebulization soln metformin 500 mg tablet,extended 500 mg PO DAILY #90 tab-caps 06/11/24 06/18/24 release 24hr (osmotic) tetracycline 250 mg capsule 250 mg PO DAILY PRN Roseacia - 06/11/24 06/18/24 takes intermittently #30 tab-caps theophylline 400 mg 400 mg PO DAILY #90 tab-caps 06/11/24 06/18/24 tablet,extended release 24 hr morphine 15 mg immediate release 15 mg PO BID PRN #10 tabs 06/18/24 tablet prednisone 20 mg tablet 40 mg PO DAILY 06/18/24 06/18/24 Previous Rx's ?Medication ?Instructions ?Recorded lancets 28 gauge #100 ea 04/10/21 albuterol sulfate 90 mcg/actuation 2 puff inhalation QID PRN 06/11/24 aerosol inhaler (Ventolin HFA) shortness of breath or wheezing #8.5 grams atorvastatin 20 mg tablet 20 mg PO QHS #90 tabs 06/11/24 budesonide-formoterol HFA 160 2 puff inhalation BID ##3 06/11/24 mcg-4.5 mcg/actuation aerosol inhaler (Symbicort) furosemide 20 mg tablet 20 mg PO QAM PRN edema #30 tabs 06/11/24 ipratropium 0.5 mg-albuterol 3 mg 3 ml inhalation Q6H PRN ##1 06/11/24 (2.5 mg base)/3 mL nebulization soln metformin 500 mg tablet,extended 500 mg PO DAILY #90 tab-caps 06/11/24 release 24hr (osmotic) tetracycline 250 mg capsule 250 mg PO DAILY PRN Roseacia - 06/11/24 takes intermittently #30 tab-caps theophylline 400 mg 400 mg PO DAILY #90 tab-caps 06/11/24 tablet,extended release 24 hr morphine 15 mg immediate release 15 mg PO BID PRN #10 tabs 06/18/24 tablet Allergies Allergy/AdvReac Type Severity Reaction Status Date / Time carbamide peroxide (From Allergy Intermediate horne my Verified 06/18/24 08:33 Debrox) ear and gives me an ear infection General Stated Complaint: Fall/Non TraumaCriteria STACI: 3 Exam Narrative Exam Narrative: 68-year-old female presenting in acute distress, splinting left ribs, tenderness over sternum, lungs clear to auscultation bilaterally, no visible signs of trauma to head, alert and oriented x 4, no hip or shoulder tenderness, no sig nificant right upper quadrant tenderness mild left upper quadrant tenderness, no CVA tenderness, no bruising to abdomen or thorax, ecchymosis to left knee, nontender, neurovascularly intact Course Vital Signs Vital signs: Vital Signs Temperature 36.4 C 06/18/24 08:25 Pulse 85 06/18/24 08:25 Respiratory Rate 20 06/18/24 08:25 Blood Pressure 157/80 H 06/18/24 08:25 Pulse Oximetry 98 06/18/24 08:25 Temperature 36.4 C 06/18/24 08:25 Temperature Source Oral 06/18/24 08:25 Pulse 85 06/18/24 08:25 Respiratory Rate 20 06/18/24 08:25 Blood Pressure 157/80 H 06/18/24 08:25 Blood Pressure Position Sitting 06/18/24 08:25 Pulse Oximetry 98 06/18/24 08:25 Oxygen Delivery Method Room Air 06/18/24 08:25 Oxygen Flow Rate 0 06/18/24 08:25 Pain Level 10 06/18/24 08:37 Lab/Test Results Lab/Test Results: Laboratory Tests Range/Units 06/18/24 09:00 WBC (4.4-10.8) 10^3/uL 11.27 H RBC (3.93-5.22) 10^6/uL 4.03 Hgb (11.2-15.7) g/dL 13.1 Hct (36.0-46.0) % 39.2 MCV (80-95) fL 97 H MCH (27.0-33.0) pg 32.5 MCHC (32.0-36.0) % 33.4 RDW (11.7-14.6) % 14.6 Plt Count (130-400) 10^3/uL 254 MPV (8.0-11.0) fL 9.7 Immature Gran % % 0.4 Neutrophils % % 71.5 Lymphocytes % % 18.9 Monocytes % % 8.9 Eosinophils % % 0.1 Basophils % % 0.2 Nucleated RBC % (0.0-0.3) % 0.0 Absolute Neutrophils (1.2-6.7) 10^3/uL 8.06 H Absolute Lymphocytes (1.2-3.4) 10^3/uL 2.13 Absolute Monocytes (0.1-0.8) 10^3/uL 1.00 H Absolute Eosinophils (0.0-0.7) 10^3/uL 0.01 Absolute Basophils (0.0-0.2) 10^3/uL 0.02 Sodium (136-145) mmol/L 142 Potassium (3.5-5.1) mmol/L 3.4 L Chloride (98-107) mmol/L 106 Carbon Dioxide (21.0-32.0) mmol/L 30.7 Anion Gap (3-11) mmol/L 5.3 BUN (7-18) mg/dL 15 Creatinine (0.55-1.02) mg/dL 0.8 Est GFR (CKD-EPI 2020) (mL/min/1.73m2) 81.21 Glucose (74-106) mg/dL 161 H Total Bilirubin (0.2-1.0) mg/dL 0.20 AST (15-37) U/L 16 ALT (14-59) U/L 26 Alkaline Phosphatase (46-116) U/L 67 Total Protein (6.4-8.2) g/dL 7.1 Albumin (3.4-5.0) g/dL 3.5 Lipase (<78) U/L 25 Medical Decision Making This 68-year-old female presenting with fall several days prior to arrival and left thorax pain requires CT secondary to age and medical comorbidities including risk of osteoporosis with recurrent steroid use. CT shows evidence of fractures to fourth fifth and sixth ribs with an incidental finding of a cyst on her pancreas which requires MRI, this is reviewed with patient encouraged to follow-up in the outpatient setting. In terms of the rib fractures and patient's level of pain I did recommend admission for pain control, patient has declined as she has a dog at home and does not have care for the dog. She says that she feels improved after morphine and I will give her several tablets of morphine with risk of addiction reviewed. Patient is also been supplied with a spirometer which she is not instructed to use at least 12 times a day. She is aware that her recommendation is to be hospitalized but is fully competent making the decision to leave and will return immediately should she have new or worsening complaints. She is aware of the risk associated with pneumonia. Her diagnostic labs are reassuring with a mild leukocytosis at 11,000. Potassium 3.4, patient will supplement with multivitamin. She will need close outpatient reassessment, return precautions reviewed and patient expressed understanding. Quality:SDOH Health Related Social Needs: Health related social needs housing instability, house d, with risk of homelessness (Z59.811), feeling lonely/isolated (Z60.8) PFSH All Active Problems (Updated 06/18/24 @ 11:04 by VENECIA Jones) Cyst of pancreas (Acute) Multiple rib fractures (Acute) Bilateral lower extremity edema (Acute) Right hip pain (Acute) Dyspnea (Acute) LUQ pain (Acute) Diverticula of intestine (Acute) Tubular adenoma (Acute) Muscle cramps at night (Acute) Osteoarthritis (Chronic) Increased BMI (Acute 07/29/14) Rosacea (Acute) Osteopenia (Acute) DEXA-04/16 Hypercholesterolemia (Acute) Gastroesophageal reflux disease with esophagitis (Acute) EGD 04/18 DM (diabetes mellitus) (Acute 05/02/14) Asthma (Acute) Medical History (Updated 06/18/24 @ 11:04 by VENECIA Jones) Cervical high risk HPV (human papillomavirus) test positive September 2022: Nl cytology/HPV+ (16/18/45 neg) -->colp: May 2022: Nl cytology/HPV+ (16/18/45 neg) 2016, 2013 and 2010 wnl. No hx abnl Depressive disorder Internal derangement of left knee Injection: 12/19/2018 Uterine leiomyoma ENLARGED UTERUS (cystic lestion) N/C in fibroid- U/S H/O balance disorder (02/09/18) Surgical History (Updated 05/14/21 @ 15:35 by Olesya Plaza NP) History of colonoscopy (~08/01/20) History of bronchoscopy History of ethmoidectomy Status post cataract extraction (08/26/14) right eye 2017 Ligation of fallopian tube 1980 NOSE RECONSTRUCTION Extraction of cataract 08/20/14 RIGHT EYE; DR. ATKINS Family History Mother , AGE 58 Diabetes Hyperlipidemia COPD (chronic obstructive pulmonary disease) Uterine cancer Breast cancer Ovarian cancer Father , AGE 68 Heart disease Throat cancer Sister No problems noted. Brother HIV (human immunodeficiency virus infection) Son No problems noted. Daughter Asthma Brother No problems noted. Maternal Grandfather No problems noted. Paternal Grandfather No problems noted. Maternal Grandmother No problems noted. Paternal Grandmother No problems noted. Social History (Updated 06/09/22 @ 14:27 by Bharati Owens) Smoking/Tobacco Use Status: Never Second Hand Exposure: Yes Smoking risk assessment performed?: Yes Alcohol Intake: current Alcohol Intake frequency: holidays/special occasions only Alcohol type: beer and hard liquor Drug use: Never Substance use type: does not use Caregiver/Support person: No Household members: none Communication Needs: None current occupation: TRANSIT COORDINATOR Pets and animals: Yes Pets and animals: cat(s) and dog(s) Sexually active: No Do you think of yourself as: straight/heterosexual Current gender identity: female What is your relationship status?: How often do you talk on the phone with friends or family?: three or more times per week How often do you get together with friends or relatives?: once per week How often do you attend cheondoism or synagogue services?: decline to answer Do you belong to any clubs or organized social groups?: no Panel score (0-1 are the most socially isolated patients): 1 What type of physical activity do you participate in: none Frequency: does not exercise Shyanne/Druze: Sikh Special shyanne needs: No Seatbelt use: always Helmet use: Yes Helmet use: sometimes Drive intox or ride w/intox commercial front load driver: No Water heater temp set <120 deg: Yes Working smoke detector in home: Yes Fire extinguisher in home: Yes Carbon monox detector in home: Yes Firearms in home: Yes Firearms unloaded and locked: Yes Do you feel safe at home: Yes Do you feel safe in your relationship?: Yes Victim of physical abuse: No Victim of emotional abuse: No Victim of sexual abuse: No Female Reproductive History Menstrual control method: none History History 3 Para 2 Hx # Term Pregnancies 2 Multiple births Hx # Pregnancies Ectopic pregnancies AB induced Hx Number of Living Children 2 AB spontaneous 1 Past Pregnancies Del. Date GA/Weeks # Preg Succ Route Wgt Sex Labor Lgth Anesth esia Location [facility] 05/26/75 40 Yes vaginal 4904.467 g Male Patty matthew [place]
[2024-06-18 09:47] LABS: Calcium 9.3 mg/dL (8.5-10.1)
[2024-06-18 10:55] LABS: Lab Add On Test DONE
[2024-06-18 11:11] LABS: Troponin I 4 ng/L (<or=51)
[2024-06-18] MEDS: MORPHine IR 15 MG TAB, 4 TABS/BTL PO (11:12)
== END 2024-06-18 11:36 | disposition home or self-care (01) ==
PROVIDERS: Emergency Provider Physician Assistant; PCP Nurse Practitioner Family
DX: S22.42XA Multiple fractures of ribs, left side, initial encounter for closed fracture (principal); K86.2 Cyst of pancreas; W19.XXXA Unspecified fall, initial encounter; Z59.811 Housing instability, housed, with risk of homelessness; Z60.8 Other problems related to social environment
CPT/HCPCS: 74177; 80053; 83690; 93005; 96374; 96375; 99285; 71260; 84484; 85025; 93010; 99284; J0131; J2270; J3490

== ENCOUNTER 2024-07-13 00:16 | Outpatient (CLI) | payer MEDICARE, OTHER, SELFPAY ==
--- OUTSIDE RECORDS SUMMARY | 2024-07-13 00:32 | XMS_ITS | Encounter Summary ---
Author Organization [facility] Address [address] [place] [address] Care Team Providers Care Nurse Private Duty Name Role Phone Unknown, Provider MD Primary Care Provider Olesya Avalos FACILITY COORDINATOR Primary Care Provider [phone] Encounter Details Date Type Department Care Team (Late st Contact Info) Description 07/29/2020 Lab Requisition [facility] Pathology & Laboratory Medicine - [facility] [address] [place] [address] Outr Resulting Lab, Provider Social History Tobacco Use Types Packs/Day Years Used Date Smoking Tobacco: Never Assessed Comments Unknown Sex and Gender Information Value Date Recorded Sex Assigned at Not on file Legal Sex Female 17:53 EST Gender Identity Not on file Sexual Orientation Not on file documented as of this encounter Plan of Treatment Not on file documented as of this encounter Procedures Procedure Name Priority Date/Time Associated Diagnosis Comments ZZCOVID-19 TEST [facility] PCR Today 07/29/2020 10:48 EST COVID-19 TESTING Routine 07/29/2020 10:4 8 EST documented in this encounter Results * COVID-19 TEST [facility] PCR (07/29/2020 10:48 EST) Swab ENTIRE NASOPHARYNX / Unknown 07/29/2020 10:48 EST 07/29/2020 15:46 EST us Provider Outr Resulting Lab MICROBIOLOGY - GENER AL ORDERABLES Final Result Performing Organization Address [facility]/ZIP Co de Phone Number [facility] [address] [place] [address] * COVID-19 TESTING (07/29/2020 10:48 EST) COVID-19 rt-PCR Result Negative Negative 07/30/2020 13:21 EST [facility] Comment: This test has not been FDA cleared or approved. This test has been authorized by FDA under an EUA for use by authorized laboratories. This test has been authorized only for detection of nucleic acid from 2019-nCoV, not for any other viruses or pathogens. This test is only authorized for the duration of the declaration that circumstances exist justifying the authorization of emergency use of in vitro diagnostic tests for detection and/or diagnosis of 2019-nCoV under section 564(b)(1) of Act, 21 U.S.C ?? 360bbb-3(b) (1), unless the authorization is terminated or revoked sooner. Negative results do not preclude 2019-nCoV infection and should not be used as the sole basis for treatment or other patient management decisions. Negative results must be combined with clinical observations, patient history, and epidemiological information. This test was developed and its performance characteristics determined by [facility]. It has not been cleared or approved by the US Food and Drug Administration. FDA does not require this test to go through premarket FDA review. This test is used for clinical purposes. It should not be regarded as investigational or for research. This laboratory is certified under the Clinical Laboratory Improvement Amendments (CLIA) as qualified to perform high complexity clinical laboratory testing. This test is based on the [facility] COVID-19 Emergency Use Authorization (EUA) assay, with minor modification as defined by the FDA Performed on the Allvoiceso 7 Flex RT-PCR System. Performing Lab [facility] Lab 07/30/2020 13:21 EST [facility] Swab 07/29/2020 10:4 8 EST 07/29/2020 15:46 EST us Provider Outr Resulting Lab MICROBIOLOGY - GENER AL ORDERABLES Final Result Performing Organization Address City/[facility] Co de Phone Number [facility] [address] [place] [address] documented in this encounter Visit Diagnoses Not on filedocumented in this encounter Care Teams Nurse Private Duty Relationship Specialty Start Date End Date Unknown, Provider, PCP - General 04/22/15 07/31/20 Olesya Plaza NP [address] [place] [phone] PCP - General 08/01/20 documented as of this encounter
--- OUTSIDE RECORDS SUMMARY | 2024-07-13 00:32 | XMS_ITS | Encounter Summary ---
Author Organization [facility] Address [address] [place] [address] Care Team Providers Care Resource Conservationist Name Role Phone Unavailable Primary Care Provider Unavailabl e Encounter Details Date Type Department Care Team (Late st Contact Info) Description 04/19/2011 Results Only [facility] Laboratory Services - [facility] ([facility] [address] [place] [address] Anil Otoole PA Social History Tobacco Use Types Packs/Day Years [...] Procedure Name Priority Date/Time Associated Diagnosis Comments PAP TEST- RESULT ONLY Routine 04/19/2011 0:00 EST documented in this encounter Results * PAP TEST- RESULT ONLY (04/19/2011 0:00 EST) Pathology Report: CYTOPATHOLOGY REPORT Reports generated via electronic interface contain original data; however they are lacking the format of the original report. Caution should be taken when reading/interpreti ng unformatted reports. Name: ? JOSIE MOSQUEDA ? Accession #: ? [id number] ? : ? 1955 (Age: 55) ??F ?Collect Date: ? 04/19/2011 ? Location: ? [facility] ? Receive Date: ? 04/20/2011 ? Provider: ANIL CUADRA Copy to: ? Final Report SPECIMEN ADEQUACY ? Satisfactory for Evaluation - transformation zone component present GENERAL CATEGORIZATION ? Negative for Intraepithelial Lesion or Malignancy ?? Menstural/Pregnanc y Status: ??Post Menopausal Other: Additional clinical information: h/o enlarged uterus, fibroid nodule Specimen/Source: ??Pap Test, Cervix/Endocervix, ThinPrep Imaging System with manual evaluation Document reviewed and electronically signed by: ? Margarita Real, CT(ASCP)(IAC) ? Report ??Date: 04/26/2011 15:35 HPV with Pap Test ? Date Ordered: ? 04/26/2011 ? Status: ?? Signed Out ?Date Complete: ? 04/29/2011 ? By: ??System Interface ? Date Reported: ? 04/29/2011 ? Interpretation RESULT: Negative for HPV types 16, 18, 31, 33, 35, 39, 45, 51, 52, 56, 58, 59, and 68. Comments Document reviewed and electronically signed by: ? System Interface ? Report date: 04/29/2011 By the signature above, the attending physician certifies that he/she has personally conducted a gross and/or microscopic examination of the described specimens and rendered or confirmed the above diagnosis. End of Report [facility] 04/19/2011 04/20/2011 us Anil CUADRA PATHOLOGY ORDERABLES Final Resul t [facility] [address] [place] [address] documented in this encounter Visit Diagnoses Not on filedocumented in this encounter
--- OUTSIDE RECORDS SUMMARY | 2024-07-13 00:32 | XMS_ITS | Encounter Summary ---
Author Organization [facility] Address [address] [place] [address] Care Team Providers Care Computer Game Designer Name Role Phone Unavailable Primary Care Provider Unavailabl e Encounter Details Date Type Department Care Team (Late st Contact Info) Description 05/02/2014 Results Only [facility] - [facility] ([facility] [place] [address] [place] [address] Anil Otoole PA Social History [...] Diagnosis Comments PAP TEST- RESULT ONLY Routine 05/02/2014 0:00 EST documented in this encounter Results * PAP TEST- RESULT ONLY (05/02/2014 0:00 EST) Pathology Report: CYTOPATHOLOGY REPORT Reports generated via electronic interface contain original data; however they are lacking the format of the original report. Caution should be taken when reading/interpreti ng unformatted reports. Name: ? JOSIE MOSQUEDA ? Accession #: ? [id number] ? : ? 1955 (Age: 58) ??F ?Collect Date: ? 05/02/2014 ? Location: ? [facility] ? Receive Date: ? 05/03/2014 ? Provider: ANIL CUADRA Copy to: ? Final Report SPECIMEN ADEQUACY ? Satisfactory for Evaluation - transformation zone component present GENERAL CATEGORIZATION ? Negative for Intraepithelial Lesion or Malignancy ?? Menstrual/Pregnanc y Status: ??Post Menopausal Specimen/Source: ??Pap Test, Cervix/Endocervix, ThinPrep Imaging System with manual evaluation Document reviewed and electronically signed by: ? Enrico Dominique, BEV(ASCP) ? Report ??Date: 05/10/2014 15:12 HPV with Pap Test ? Date Ordered: ? 05/10/2014 ? Status: ?? Signed Out ?Date Complete: ? 05/14/2014 ? By: ??System Interface ? Date Reported: ? 05/14/2014 ? Interpretation RESULT: Negative for HPV. No E6 or E7 mRNA is detected from HPV types 16,18,31,33,35, 39,45,51,52,56,58, 59,66, and 68 by warehouse analyst mediated amplification. Comments Document reviewed and electronically signed by: ? System Interface ? Report date: 05/14/2014 By the signature above, the attending physician certifies that he/she has personally conducted a gross and/or microscopic examination of the described specimens and rendered or confirmed the above diagnosis. End of Report [facility] 05/02/2014 05/03/2014 us Anil CUADRA PATHOLOGY ORDERABLES Final Resul t [facility] [address] [place] [address] documented in this encounter Visit Diagnoses Not on filedocumented in this encounter
--- OUTSIDE RECORDS SUMMARY | 2024-07-13 00:32 | XMS_ITS | Clinical Summary ---
Author Organization [facility] Address [facility] [place] [address] Care Team Providers Care Junior Software Engineer Name Role Phone Jessica Otoole Primary Care Provider [phone] Allergies No known active allergies Medications Medication Sig Dispensed Refills Start Date End Date Status CIS Free Text Med - Albuterol 1 Puff(s), Inh, PRN 08/23/2008 Active CIS Free Text Med - Tetracycline 250MG = 1 Tablet(s), PO, Twice daily 08/23/2008 Active fluticasone-salmeterol (ADVAIR DISKUS) 500-50 mcg/dose diskus inhaler 1 Disk(s), Inh, Twice daily 08/23/2008 Active fluticasone (FLONASE) 50 mcg/Actuation nasal spray 1 [place](s), Nasal, PRN 08/23/2008 Active ranitidine (ZANTAC) 150 mg tablet 150mg, PO, Once daily 08/23/2008 Active ipratropium-albuterol (DUONEB) 0.5 mg-3 mg(2.5 mg base)/3 mL nebulizer solution 1 Appl(s), Inh, Four times daily PRN 08/23/2008 Active lansoprazole (PREVACID) 30 mg capsule 30MG = 1 Capsule(s), PO, Twice daily 08/23/2008 Active fexofenadine (JUDE) 180 mg tablet 180MG = 1 Tablet(s), PO, Once daily 08/23/2008 Active theophylline CR, 12 hour, (THEODUR) 200 mg 12 hr tablet 200MG = 1 Tablet(s), PO, Twice daily 08/23/2008 Active Immunizations Name Administration Dates Next Due Influenza Vaccine, Whole 04/12/2006 Pneumococcal 23-Valent Polysaccharide (Pneumovax 23) 02/25/2004,03/12/1996 Td Adult (not absorbed) 02/14/2003 Social History Tobacco Use Types Packs/Day Years Used Date Smoking Tobacco: Never Assessed Sex and Gender Information Value Date Recorded Sex Assigned at Not on file Gender Identity Not on file Sexual Orientation Not on file Plan of Treatment Health Maintenance Due Date Last Done Comments CT Colonography 1955 FIT DNA 1955 FIT 1955 Sigmoidoscopy (10 year) with FIT yearly 1955 Sigmoidoscopy 1955 Hepatitis C Screening 1975 Breast Cancer Share Decision Needed 1997 Breast Cancer screening 1997 Tetanus/Diphtheria/Pertussis Vaccines (1 - Tdap) 02/15/2003 02/14/2003 Pneumoccocal Vaccine: 50+ (2 of 2 - PCV) 2007 02/25/2004, 03/12/1996 Zoster vaccine (1 of 2) 2007 Advance Directive 2012 Colonoscopy 08/23/2013 08/23/2008 (See prior EHR) Colorectal Cancer Screening 08/23/2013 Bone Density Scan 2022 Covid-19 Vaccine (1 - 2023- season) 2024 Influenza (Flu) vaccine (1 o f 1 - Influenza standard series) 02/12/2024 04/12/2006 Care Teams Junior Software Engineer Relationship Specialty Start Date End Date Jessica Otoole PA PCP - General 05/05/10
--- OUTSIDE RECORDS SUMMARY | 2024-07-13 00:32 | XMS_ITS | Encounter Summary ---
Author Organization [facility] Address [address] [place] [address] Care Team Providers Care Stove Tender Name Role Phone Unavailable Primary Care Provider Unavailabl e Encounter Details Date Type Department Care Team (Late st Contact Info) Description 02/22/2008 Before PRISM Converted Visit (Maple) [facility] - Maple conversion [address] [place] [address] Anil Otoole PA Social History Tobacco Use [...] Procedure Name Priority Date/Time Associated Diagnosis Comments HPV DETECTION, HIGH RISK TYPES Routine 02/22/2008 9:40 EDT CYTOPATHOLOGY Routine 02/22/2008 0:00 EDT documented in this encounter Results * HUMAN PAPILLOMA VIRUS DNA TEST (02/22/2008 9:40 EDT) Specimen Description Cervix, ThinPrep vial [facility] Result Negative for HPV types 16, 18, 31, 33, 35, 39, 45, 51, 52, 56, 58, 59, and 68. [facility] Report Status Final 03/14/2008 [facility] 02/22/2008 9:40 EDT 03/08/2008 9:40 EDT us Anil CUADRA MICROBIOLOGY - GENERAL ORDERABLE S Final Result [facility] [address] [place] [id number] * CYTOPATHOLOGY (02/22/2008 0:00 EDT) Pathology Report: CYTOPATHOLOGY REPORT ? Reports generated via electronic interface contain original data; ? however they are lacking the format of the original report. ? Caution should be taken when reading/interpreti ng unformatted reports. ? Name: ? JOSIE MOSQUEDA ? Accession #: ? [id number] ? : ? 1955 (Age: 52) ??F ?Collect Date: ? 02/22/2008 ? Location: ? [facility] ? Receive Date: ? 02/23/2008 ? Provider: ?ANIL SOFY PA ? Copy to: ? Specimen/Source: ?ThinPrep Pap Test, Endocervix, processed on Cytyc ? ThinPrep Imaging System, with manual evaluation ? Last Menstrual Period: ? 07/08 ? Other: ? Additional clinical information: Fibroid nodules ? SPECIMEN ADEQUACY ? Satisfactory for Evaluation ? - transformation zone component present ? GENERAL CATEGORIZATION ? Negative for Intraepithelial Lesion or Malignancy ? Document reviewed and electronically signed by: ? Enrico Dominique, CT(ASCP) ? Report Date: ??02/28/2008 08:54 ? End of Report ? [facility] 02/22/2008 02/23/2008 us Anil CUADRA PATHOLOGY ORDERABLES Final Resul t [facility] [address] [place] [address] documented in this encounter Visit Diagnoses Not on filedocumented in this encounter
--- OUTSIDE RECORDS SUMMARY | 2024-07-13 00:32 | XMS_ITS | Encounter Summary ---
Author Organization [facility] Address [facility] [place] [address] Care Team Providers Care Housing Project Manager Name Role Phone Xiang Jessica CUADRA Primary Care Provider [phone] Encounter Details Date Type Department Care Team (Late st Contact Info) Description 08/23/2008 Orders [place] [address] Ash Ivan MD [facility] [place] [address] Social History Tobacco Use Types Packs/Day Years Used Date Smoking Tobacco: Never Assessed Sex and Gender Information Value Date Recorded Sex Assigned at Not on file Gender Identity Not on file Sexual Orientation Not on file documented as of this encounter Plan of Treatment Not on file documented as of this encounter Procedures Procedure Name Priority Date/Time Associated Diagnosis Comments SURGICAL PATHOLOGY REPORT Routine 08/23/2008 3:16 PM EDT documented in this encounter Results * Surgical Pathology Report (08/23/2008 3:16 PM EDT) Surgical Pathology Report [id number] ? Location: 4T The signing pathologist has (i) examined the relevant preparation(s) for the specimen(s) and (ii) rendered or confirmed the diagnosis(es). . ?Pathology Surgical Pathology Final Report Clinical Information Specimen Submitted: A - Tissue: Sigmoid Clinical History: Diminutive sigmoid polyps at 25 cm Clinical Diagnosis: Screening Gross Description Labeled/Fixative : ? Sigmoid, formalin. Qty/Size/Weight: ?Four, averaging 0.3 x 0.2 x 0.2 cm. Tissue Description: ?? Soft, red tissues. Sections/Process ing: ??(T1) ??aje/SNS Microscopic Description Slides reviewed, microscopic description not recorded. Diagnosis Sigmoid polyps: ?Tubular adenoma (x 1) ?? Fragments of hyperplastic polyp. CR-PX 08/26/08 VMS 08/26/08 Verified by: ? Octavia MURILLO, Preet ?Pathologist ?(Electronic Signature) The attending pathologist whose signature appears on this report has reviewed all diagnostic slides and has edited the gross and/or microscopic portion of the report in rendering the final pathologic diagnosis. BRY CHERY 08/23/2008 3:16 PM EDT Ash Ivan MD PATHOLOGY/CYTOLOGY O RDERABLES BRY CHERY documented in this encounter Visit Diagnoses Not on filedocumented in this encounter Care Teams Housing Project Manager Relationship Specialty Start Date End Date Jessica Otoole PA PCP - General 05/05/10 documented as of this encounter
--- OUTSIDE RECORDS SUMMARY | 2024-07-13 00:32 | XMS_ITS | Encounter Summary ---
Author Organization [facility] Address [address] [place] [address] Care Team Providers Care Director Of Nursing Name Role Phone Olesya Plaza SUPERVISOR POULTRY FARM Primary Care Provider Encounter Details Date Type Department Care Team (Late st Contact Info) Description 08/01/2020 Lab Requisition [facility] Pathology & Laboratory Medicine - [facility] [address] [place] [address] Jamila Sellers, DO [address] [place] [address] Encounter for other general examination Social History Tobacco Use Types Packs/Day Years [...] Priority Date/Time Associated Diagnosis Comments SURGICAL PATHOLOGY Today 08/01/2020 8: 55 EST Encounter for other general examination documented in this encounter Results * SURGICAL PATHOLOGY (08/01/2020 8:55 EST) Final Diagnosis A. COLON, CECUM, POLYP, BIOPSY: - Tubular adenoma. 08/05/2020 9:05 EST [facility] Attestation There was significant resident/fellow involvement in the diagnostic evaluation of this case. By the signature below, the attending physician certifies that they have personally conducted a gross and/or microscopic examination of the described specimens and rendered or confirmed the above diagnosis. 08/05/2020 9:05 [facility] at 0905 Clinical History Colorectal screening/colonos copy with polyp and diverticulosis 08/05/2020 9:05 [facility] Gross Description A. Received in formalin labelled with proper patient identification (initials T, S) and cecal polyp is a single ya polypoid tissue (0.4 x 0.2 x 0.1 cm). Submitted intact in A1. VENECIA TANNER(ASCP) 08/01/2020 17:28 08/05/2020 9:05 [facility] Resident/Guille w: Geno Voss MD 08/05/2020 9:05 [facility] Performing Lab [facility] 08/05/2020 9:05 [facility] Scanned Images 08/05/2020 9:05 [facility] Tissue POLYP OF COLON / Unknown 08/01/2020 8:55 EST 08/01/2020 16:42 EST us Jamila Sellers DO PATHOLOGY ORDERABLES Final Re sult [facility] [address] [place] [address] documented in this encounter Visit Diagnoses Diagnosis Encounter for other general examination documented in this encounter Care Teams Director Of Nursing Relationship Specialty Start Date End Date Olesya Plaza NP [address] [place] [phone] PCP - General 08/01/20 documented as of this encounter
--- OUTSIDE RECORDS SUMMARY | 2024-07-13 00:32 | XMS_ITS | Clinical Summary ---
Author Organization [facility] Address [address] [place] [address] Care Team Providers Care Design Director Name Role Phone Olesya Plaza COMMUNITY RELATIONS ADVISOR Primary Care Provider [phone] Social History Tobacco Use Types Packs/Day Years Used Date Smoking Tobacco: Never Assessed Comments Unknown Sex and Gender Information Value Date Recorded Sex Assigned at Not on file Legal Sex Female 17:53 EST Gender Identity Not on file Sexual Orientation Not on file Plan of Treatment Health Maintenance Due Date Last Done Comments Hepatitis C Screen 1955 Fall Risk Screening 2022 COVID-19 Vaccine ( season) 2024 RSV Immunization ( o r 60+ Years) (1 - 1-dose 75+ series) 2032 Insurance [facility] Care Teams Design Director Relationship Specialty Start Date End Date Olesya Plaza NP [address] [place] [phone] PCP - General 08/01/20
--- OUTSIDE RECORDS SUMMARY | 2024-07-13 00:32 | XMS_ITS | Encounter Summary ---
Author Organization [facility] Address [address] [place] [address] Care Team Providers Care Medical Office Professional Instructor Name Role Phone Olesya Plaza TUBER MACHINE CUTTER Primary Care Provider [phone] Encounter Details Date Type Department Care Team (Late st Contact Info) Description 09/29/2022 Lab Requisition [facility] Pathology & Laboratory Medicine - [facility] [address] [place] [address] [place] [id number] Encounter for other general examination Social History [...] Name Priority Date/Time Associated Diagnosis Comments PAP TEST Today 09/28/2022 8:15 EDT Encounter for other general examination HPV GENOTYPES 16 AND 18/45 Today 09/28/2022 8:15 EDT Encounter for other general examination HPV DNA DETECTION WITH GENOTYPING, PCR Today 09/28/2022 8:15 EDT Encounter for other general examination documented in this encounter Results * HPV GENOTYPES 16 AND 18/45 (09/28/2022 8:15 EDT) HPV High Risk type 16, PCR Negative Negative 10/12/2022 12:21 EDT [facility] HPV18/45 RNA (HPV18/45) Negative Negative 10/12/2022 12:21 EDT [facility] Papanicolaou smear specimen (specimen) CERVIX UTERI STRUCTURE / Unknown 09/28/2022 8:15 EDT 10/06/2022 14:[address] [facility] MICROBIOLOGY - GENERAL ORDERABL ES Final Result Performing Organization Address City/[facility] Co de Phone Number [facility] [address] [place] [address] * (ABNORMAL) HUMAN PAPILLOMAVIRUS (HPV) DETECTION-HIGH RISK TYPES (09/28/2022 8:15 EDT) HPV other High Risk types, PCR Positive( A) Negative 10/13/2022 15:54 EDT [facility] Comment:E6 OR E7 mRNA from o ne or more types of HPV types 16,18,31,33,35,39,45,51,52,56,58,59,66, and 68 is detected by diagnostic radiologist mediated amplification. High and intermediate risk HPV types are associated with most squamous intraepithelial lesions and cervical cancers. Papanicolaou smear specimen (specimen) CERVIX UTERI STRUCTURE / Unknown 09/28/2022 8:15 EDT 10/06/2022 14:52 EDT [facility] - GENERAL ORDERABL ES Final Result Performing Organization Address City/[facility]/ZIP Co de Phone Number [facility] [address] [place] [address] * PAP TEST (09/28/2022 8:15 EDT) Specimens A. Cervix and/or Endocervix , ThinPrep Imaging System with Manual Evaluation 10/13/2022 15:54 EDT [facility] Specimen Adequacy Satisfactory for Evaluation - assessment of transformation zone component not applicable ( e.g. atrophy, vaginal sample, hysterectomy) Scant squamous epithelial component, contamination present, possibly lubricant 10/13/2022 15:54 EDT [facility] General Categorization Negative for intraepithelial lesion or malignancy 10/13/2022 15:54 EDT [facility] Attestation . 10/13/2022 15:54 EDT [facility] at 1554 Clinical History See below 10/14/19 15:54 EDT [facility] HPV The result for the Human Papillomavirus (HPV) Detection-High Risk Types is Positive . E6 OR E7 mRNA from one or more types of HPV types 16,18,31,33,35,39 ,45,51,52,56,58,5 9,66, and 68 is detected by diagnostic radiologist mediated amplification. High and intermediate risk HPV types are associated with most squamous intraepithelial lesions and cervical cancers. Testing was performed on specimen [id number] and was resulted on 10/08/2022 1559 EDT by KATY, LAB INSTRUMENT RESULTS IN 10/13/2022 15:54 EDT [facility] Genotyping 16 & 18/45 The results for the HPV Genotypes 16 and 18/45 are Negative for the HPV16 RNA and Negative for the HPV18/45 RNA (HPV18/45). Testing was performed on specimen [id number] and was resulted on 10/12/2022 1220 EDT by KATY, LAB INSTRUMENT RESULTS IN 10/13/2022 15:54 EDT [facility] Performing Lab [facility] 10/13/2022 15:54 EDT [facility] Scanned Images 10/13/2022 15:54 EDT [facility] Papanicolaou smear specimen (specimen) CERVIX UTERI STRUCTURE / Unknown 09/28/2022 8:15 EDT 09/29/2022 9:51 EDT us Lily King [place] PATHOLOGY ORDERABLES Final Resu lt [facility] [address] [place] [address] documented in this encounter Visit Diagnoses Diagnosis Encounter for other general examination documented in this encounter Care Teams Medical Office Professional Instructor Relationship Specialty Start Date End Date Olesya Plaza NP [address] [place] [address] [address] [place] [phone] PCP - General 08/01/20 documented as of this encounter
--- OUTSIDE RECORDS SUMMARY | 2024-07-13 00:32 | XMS_ITS | Encounter Summary ---
Author Organization [facility] Address [address] [place] [address] Care Team Providers Care Fermentation Scientist Name Role Phone Unknown, Provider Primary Care Provider Unava ilable Encounter Details Date Type Department Care Team (Late st Contact Info) Description 04/20/2017 Results Only [facility] [phone] Ranulfo Antoine, [employer] [address] [place] [phone] Social History Tobacco Use Types Packs/Day Years [...] Diagnosis Comments PAP TEST- RESULT ONLY Routine 04/20/2017 0:00 EST documented in this encounter Results * PAP TEST- RESULT ONLY (04/20/2017 0:00 EST) Pathology Report: CYTOPATHOLOGY REPORT Reports generated via electronic interface contain original data; however they are lacking the format of the original report. Caution should be taken when reading/interpreti ng unformatted reports. Name: ? JOSIE MOSQUEDA ? Accession #: ? [id number] ? : ? 1955 (Age: 61) ??F ?Collect Date: ? 04/20/2017 ? Location: ? [facility] ? Receive Date: ? 04/22/2017 ? Provider: RANULFO ANTOINE PHYSICAL THERAPY ASSISTANT-BC Copy to: ? Final Report SPECIMEN ADEQUACY ? Satisfactory for Evaluation - transformation zone component present GENERAL CATEGORIZATION ? Negative for Intraepithelial Lesion or Malignancy ?? Specimen/Source: ??Pap Test, Cervix, ThinPrep Imaging System with manual evaluation Document reviewed and electronically signed by: ? Lili Raquel, CT(ASCP) ? Report ??Date: 05/04/2017 10:19 HPV with Pap Test ? Date Ordered: ? 05/04/2017 ? Status: ?? Signed Out ?Date Complete: ? 05/06/2017 ? By: ??System Interface ? Date Reported: ? 05/06/2017 ? Interpretation RESULT: Negative for HPV. No E6 or E7 mRNA is detected from HPV types 16,18,31,33,35, 39,45,51,52,56,58, 59,66, and 68 by supervisor hardboard mediated amplification. Comments Document reviewed and electronically signed by: ? System Interface ? Report date: 05/06/2017 By the signature above, the attending physician certifies that he/she has personally conducted a gross and/or microscopic examination of the described specimens and rendered or confirmed the above diagnosis. End of Report [facility] 04/20/2017 04/22/2017 us Ranulfo Antoine NP PATHOLOGY ORDERABLES Final Res ult [facility] [address] [place] [address] documented in this encounter Visit Diagnoses Not on filedocumented in this encounter Care Teams Fermentation Scientist Relationship Specialty Start Date End Date Unknown, Provider, PCP - General 04/22/15 07/31/20 documented as of this encounter
--- OUTSIDE RECORDS SUMMARY | 2024-07-13 00:32 | XMS_ITS | Encounter Summary ---
Author Organization [facility] Address [address] [place] [address] Care Team Providers Care Farm Contractor Name Role Phone Olesya Plaza ELECTRONIC PUBLICATIONS SPECIALIST Primary Care Provider [phone] Encounter Details Date Type Department Care Team (Late st Contact Info) Description 06/09/2022 Lab Requisition [facility] Pathology & Laboratory Medicine - [facility] [address] [place] [address] [place] [id number] Encounter for other general examination Social History [...] Date/Time Associated Diagnosis Comments PAP TEST Today 06/08/2022 9:00 EST Encounter for other general examination HPV DNA DETECTION WITH GENOTYPING, PCR Today 06/08/2022 9:00 EST Encounter for other general examination documented in this encounter Results * (ABNORMAL) HUMAN PAPILLOMAVIRUS (HPV) DETECTION-HIGH RISK TYPES (06/08/2022 9:00 EST) HPV other High Risk types, PCR Positive( A) Negative 06/17/2022 15:59 [facility] Comment:E6 OR E7 mRNA from o ne or more types of HPV types 16,18,31,33,35,39,45,51,52,56,58,59,66, and 68 is detected by hand endband cutter mediated amplification. High and intermediate risk HPV types are associated with most squamous intraepithelial lesions and cervical cancers. Papanicolaou smear specimen (specimen) CERVIX UTERI STRUCTURE / Unknown 06/08/2022 9:00 EST 06/16/2022 13:22 EST us Lily King Vesna MICROBIOLOGY - GENERAL ORDERABL ES Final Result [facility] [address] [place] [address] * PAP TEST (06/08/2022 9:00 EST) Specimens A. Cervix and/or Endocervix , ThinPrep Imaging System with Manual Evaluation 06/17/2022 15:59 [facility] Specimen Adequacy Satisfactory for Evaluation - assessment of transformation zone component not applicable ( e.g. atrophy, vaginal sample, hysterectomy) Scant squamous epithelial component, contamination present, possibly lubricant 06/17/2022 15:59 [facility] General Categorization Negative for intraepithelial lesion or malignancy 06/17/2022 15:59 [facility] Attestation . 06/17/2022 15:59 [facility] at 1559 Clinical History See below 06/17/19 23 15:59 [facility] HPV The result for the Human Papillomavirus (HPV) Detection-High Risk Types is Positive . E6 OR E7 mRNA from one or more types of HPV types 16,18,31,33,35,39 ,45,51,52,56,58,5 9,66, and 68 is detected by hand endband cutter mediated amplification. High and intermediate risk HPV types are associated with most squamous intraepithelial lesions and cervical cancers. Testing was performed on specimen [id number] and was resulted on 06/17/2022 1559 EST by KATY, LAB INSTRUMENT RESULTS IN 06/17/2022 15:59 EST [facility] Performing Lab [facility] 06/17/2022 15:59 EST [facility] Scanned Images 06/17/2022 15:59 EST [facility] Papanicolaou smear specimen (specimen) CERVIX UTERI STRUCTURE / Unknown 06/08/2022 9:00 EST 06/09/2022 11:06 EST us Lily King Vesna PATHOLOGY ORDERABLES Final Resu lt [facility] [address] [place] [address] documented in this encounter Visit Diagnoses Diagnosis Encounter for other general examination documented in this encounter Care Teams Farm Contractor Relationship Specialty Start Date End Date Olesya Plaza NP [address] [place] [id number] PCP - General 08/01/20 documented as of this encounter
--- OUTSIDE RECORDS SUMMARY | 2024-07-13 00:32 | XMS_ITS | Referral Summary ---
Author Organization [facility] Address [address] [place] [address] Care Team Providers Care Waterway Traffic Checker Name Role Phone Olesya Plaza PROOFER APPRENTICE Primary Care Provider [phone] Social History Tobacco Use Types Packs/Day Years Used Date Smoking Tobacco: Never Assessed Comments Unknown Sex and Gender Information Value Date Recorded Sex Assigned at Not on file Legal Sex Female 17:53 EST Gender Identity Not on file Sexual Orientation Not on file Plan of Treatment Not on file Insurance [facility] Care Teams Waterway Traffic Checker Relationship Specialty Start Date End Date Olesya Plaza NP [address] [place] [address] [address] [place] [phone] PCP - General 08/01/20
--- OUTSIDE RECORDS SUMMARY | 2024-07-13 00:32 | XMS_ITS | Encounter Summary ---
Author Organization [facility] Address [address] [place] [address] Care Team Providers Care Graves Registration Specialist Name Role Phone Unknown, Provider Primary Care Provider Olesya Avalos EMBEDDED HARDWARE ENGINEER Primary Care Provider Encounter Details Date Type Department Care Team (Late st Contact Info) Description 05/22/2020 Lab Requisition [facility] Pathology & Laboratory Medicine - [facility] [address] [place] [address] Outr Resulting Lab, Provider Social History Tobacco [...] Procedure Name Priority Date/Time Associated Diagnosis Comments THEOPHYLLINE Routine 05/22/2020 7:53 EST documented in this encounter Results * (ABNORMAL) THEOPHYLLINE (05/22/2020 7:53 EST) Theophylline 4.8(L) 10.0 - 20.0 ug/mL 05/22/2020 22:39 EST [facility] Blood VENOUS BLOOD / Unknown 05/22/2020 7:53 EST 05/22/2020 21:20 EST us Provider Outr Resulting Lab CHEMISTRY & BLOOD GA S ORDERABLES Final Result [facility] [address] [place] [address] documented in this encounter Visit Diagnoses Not on filedocumented in this encounter Care Teams Graves Registration Specialist Relationship Specialty Start Date End Date Unknown, Provider, PCP - General 04/22/15 07/31/20 Olesya Plaza NP [address] [place] [phone] PCP - General 08/01/20 documented as of this encounter
--- NOTE | 2024-07-13 06:15 | DI.MRI_ITS ---
Exam(s) MR ABDOMEN WO/W EXAM: MR ABDOMEN WO/W CLINICAL HISTORY: pancreatic cyst seen on CT,K86.2 TECHNIQUE: Multiplanar multisequence MRI of the Abdomen was performed. CONTRAST MATERIAL: IV Contrast: 17 mL of Dotarem contrast administered. COMPARISON: CT CT CHEST/ABD/PEL W from 06/18/2024 FINDINGS: Lung bases: Unremarkable. Liver: Unremarkable. No evidence of a hepatic mass. The liver is enlarged. Pancreas: There is a 2.5 x 1.7 cm simple cyst in the tail of the pancreas. There also 2 smaller cyst s seen in the body of the pancreas. The larger measuring 1.2 x 0.8 cm. There is no enhancement of t he cysts following contrast administration. Gallbladder and Bile Ducts: There is no evidence of cholelithiasis or biliary ductal dilatation. Adrenals: Unremarkable. Kidneys: No evidence of a renal mass. No hydronephrosis. Note is made of a retroaortic left renal v ein. Spleen: Unremarkable. Bowel: There is diverticulosis seen of the colon but no evidence of acute diverticulitis. No evidenc e of bowel obstruction is seen. Aorta: Unremarkable. Soft Tissues: Unremarkable. Bone: Unremarkable. Lymph Nodes: Unremarkable. IMPRESSION: Pancreatic cysts. The largest measures 1.2 x 0.8 cm. A repeat examination in 6 months is recommende d for re-evaluation. DATA REPOSITORY:
[2024-07-13] MEDS: Gadoterate meglumine 20 ML VIAL 17 ML IVP (08:22)
[2024-07-13] MEDS: Normal Saline - Diluent 50 ML VIAL 25 ML IJ (08:23)
== END 2024-07-13 00:36 ==
PROVIDERS: PCP Nurse Practitioner Family; Visit Provider Nurse Practitioner Family
DX: K86.2 Cyst of pancreas (principal)
CPT/HCPCS: 74183

== ENCOUNTER → 2024-07-23 14:21 | Outpatient (BNVA) | payer MEDICARE, OTHER, SELFPAY | PROVIDERS: PCP Nurse Practitioner Family; Referring Provider Nurse Practitioner Family | DX: M16.11 Unilateral primary osteoarthritis, right hip (principal) | CPT/HCPCS: 99214 ==

== ENCOUNTER 2024-10-08 13:15 | Outpatient (CLI) | payer MEDICARE, OTHER, SELFPAY ==
--- NOTE | 2024-10-08 13:00 | DI.RAD_ITS ---
Exam(s) XR PELVIS AP EXAM: XR PELVIS AP CLINICAL HISTORY: PRE OP R MARISOL. TECHNIQUE: 2D digital imaging was performed. Single AP view. COMPARISON: CR XR HIP RT COMPLETE AP PELVIS from 06/12/2024 FINDINGS: BONES: No acute fracture is present. No bony destructive lesion is seen. JOINTS: No dislocation present. There is severe narrowing of the right hip joint space superiorly. There is periarticular spurring and subchondral cyst formation in the superior acetabulum. Left hip joint space is maintained. SOFT TISSUE: Normal. IMPRESSION: Advanced degenerative changes of the right hip. DATA REPOSITORY: RADIATION DOSE DELIVERED:
== END 2024-10-08 13:16 | disposition home or self-care (01) ==
LOC: DIORS 13:15
PROVIDERS: PCP Nurse Practitioner Family; Visit Provider Physician Assistant
DX: M16.11 Unilateral primary osteoarthritis, right hip (principal); Z01.818 Encounter for other preprocedural examination
CPT/HCPCS: 72170

== ENCOUNTER 2024-10-08 18:49 | Outpatient (REF) | payer MEDICARE, OTHER, SELFPAY ==
[2024-10-08 15:45] LABS: HCT 39.8 % (36.0-46.0); HGB 13.2 g/dL (11.2-15.7); MCH 32.3 pg (27.0-33.0); MCHC 33.2 % (32.0-36.0); MCV 97 fL (80-95); MPV 9.9 fL (8.0-11.0); Platelet Count 273 10^3/uL (130-400); RBC 4.09 10^6/uL (3.93-5.22); RDW 13.8 % (11.7-14.6); RDW-SD 49.6 fL; WBC 8.43 10^3/uL (4.4-10.8)
[2024-10-08 16:07] LABS: Anion Gap 8.7 mmol/L (3-11); BUN 17 mg/dL (7-18); CO2 29.3 mmol/L (21.0-32.0); CREATININE 0.6 mg/dL (0.55-1.02); Calcium 9.7 mg/dL (8.5-10.1); Chloride 103 mmol/L (98-107); Estimated GFR 98.32 (mL/min/1.73m2); Glucose 98 mg/dL (74-106); Potassium 3.8 mmol/L (3.5-5.1); Sodium 141 mmol/L (136-145)
[2024-10-08 16:14] LABS: Hemoglobin A1C 6.4 % (<5.7)
[2024-10-11 07:19] LABS: Fructosamine 223 mcmol/L (200 - 285)
== END 2024-10-08 18:50 | disposition home or self-care (01) ==
LOC: LBN 18:49
PROVIDERS: Student in an Organized Health Care Education/Training Program; PCP Nurse Practitioner Family; Visit Provider Physician Assistant
DX: M16.11 Unilateral primary osteoarthritis, right hip (principal); E11.9 Type 2 diabetes mellitus without complications; Z01.818 Encounter for other preprocedural examination
CPT/HCPCS: 80048; 85027; 82985; 83036

== ENCOUNTER 2024-10-24 07:13 | Observation (INO) | payer MEDICARE, OTHER, SELFPAY ==
[2024-10-24] VITALS (66 sets, daily range): BP systolic 82–147; BP diastolic 37–80; PULSE 60–90; RESP 7–24; TEMP 35.9–36.9; O2SAT 89–100; BMI 41.0
--- NOTE | 2024-10-24 | DI.RAD_ITS ---
Exam(s) XR HIP RT AP LAT ONLY EXAM: XR HIP RT AP LAT ONLY CLINICAL HISTORY: Pain after MARISOL. TECHNIQUE: 2D digital imaging was performed. Two images were obtained. AP and lateral views were ob tained. COMPARISON: CR XR PELVIS AP from 10/08/2024 XA XR HIP RT IN OR from 10/24/2024 FINDINGS: BONES: There are now post operative changes of a right total hip arthroplasty present. No fracture o r dislocation. JOINTS: The orthopedic hardware is in good position. No evidence of hardware loosening. SOFT TISSUE: Normal. IMPRESSION: The patient is now status post right total hip arthroplasty. DATA REPOSITORY: RADIATION DOSE DELIVERED:
[2024-10-24] MEDS: Acetaminophen 500 MG TAB 1000 MG PO ×2 (06:46→14:31)
[2024-10-24] MEDS: Celecoxib 200 MG CAP 400 MG PO (06:48)
[2024-10-24] MEDS: Lactated Ringers 1,000 ML 80 ML IV ×3 (07:02→15:53)
--- NOTE | 2024-10-24 07:15 | PDOC.DSDIS_ITS ---
Date of service: 10/24/24 Discharge Plan Disposition Patient Disposition: Home Condition: Good Discharge Details Reason For Visit: R THR Attending Provider: Michael English Primary Care Provider: Lily Malagon Home Meds and New Rx's Prescriptions: New acetaminophen 500 mg tablet 1,000 mg PO TID Qty: 90 3RF aspirin 81 mg tablet,delayed release (DR/EC) 81 mg PO BID Qty: 60 0RF celecoxib 200 mg capsule 200 mg PO BID Qty: 60 0RF dexamethasone 4 mg tablet 4 mg PO DAILY Qty: 2 0RF docusate sodium 100 mg capsule 100 mg PO BID PRNQty: 28 0RF pantoprazole 40 mg tablet,delayed release (DR/EC) 40 mg PO DAILY Qty: 14 0RF oxycodone 5 mg tablet 5 mg PO Q4H MDD 6 tabs PRN (Reason: pain) Qty: 12 0RF Continued albuterol sulfate [Ventolin HFA] 90 mcg/actuation HFA aerosol inhaler 2 puff inhalation QID PRN (Reason: shortness of breath or wheezing) Qty: 8.5 6RF atorvastatin 20 mg tablet 20 mg PO QHS Qty: 90 3RF budesonide-formoterol [Symbicort] 160-4.5 mcg/actuation HFA aerosol inhaler 2 puff Inhalation BID Qty: 3 4RF ipratropium-albuterol 0.5 mg-3 mg(2.5 mg base)/3 mL solution for nebulization 3 ml Inhalation Q6H PRN Qty: 1 0RF metformin 500 mg tablet extended release 24hr 500 mg PO DAILY Qty: 90 4RF tetracycline 250 mg capsule 250 mg PO DAILY PRN (Reason: Roseacia - takes intermittently) Qty: 30 1RF theophylline 400 mg tablet extended release 24 hr 400 mg PO DAILY Qty: 90 4RF Rx Instructions: Note change from twice a day dosing to once a day. furosemide 20 mg tablet 20 mg PO QAM PRN (Reason: edema) Qty: 30 1RF Osteo Bi-Flex Triple Strength 750 mg-644 mg- 30 mg-1 mg tablet 1 tab PO DAILY (DME) blood-glucose meter 1 EACH misc 1 ea Miscellaneous twice weekly Qty: 1 Rx Instructions: FOR ONE TOUCH ULTRA MINI DIAGNOSIS CODE 250.02 (DME) Blood Glucose Test 1 EACH strip 1 ea Miscellaneous DAILY Qty: 100 Rx Instructions: FOR ONE TOUCH ULTRA MINI METER. PT DOES NOT USE INSULIN. DIAGNOSIS CODE 250.02 (DME) lancets 28 gauge misc 1 ea Miscellaneous DAILY Qty: 100 3RF Rx Instructions: delica- NO INSULIN. DIAGNOSIS CODE 250.02 once daily No Action prednisone 20 mg tablet 40 mg PO DAILY PRN Patient Comments: TAKE TWO TABLETS BY MOUTH EVERY DAY FOR 5 DAYS Discharge Instructions Additional Instructions: Total Hip Discharge Instructions Activity: The most important activity is to walk. You should try to take short walks a few times a day. You have no restrictions on movement or positioning, but do not try to force what you do. You will find some stiffness and weakness with hip flexion (lifting your knee). Do not try to strengthen this too early, continue to practice walking and stairs and this will come. - Outpatient physical therapy can be helpful to help return you to a normal gait and improve your flexibility and strength. This can start around 2 weeks. For some patients, it?s not necessary. Usually this is determined at the time of discharge or at the first post-operative visit. - You should wear the TIFFANI hose on both legs for 2 weeks. Dressing: Keep the surgical dressing in place for at least one week. After the first week it may be removed and replace with light gauze and tape or nothing. It may get wet after 3 days but avoid soaking the dressing. If it gets wet, just lightly pat dry. It is important to always keep some gauze between skin folds, especially when you are sitting. Spend some time with the wound exposed when you are lying flat as the incision does wrinkle onto itself. Medications: - You should take Tylenol and an anti-inflammatory Celebrex as your primary pain control medications. If the Celebrex is too expensive or not covered, please call the office for another alternative (Advil/Ibuprofen or Naproxen/Aleve). - You have been prescribed a stronger pain medication Oxycodone for breakthrough pain, take as needed as prescribed. - You have also been prescribed a stomach acid reduction agent Pantoprozole to help reduce stomach acid and reflux. - You have also been prescribed Decadron to help with post-operative nausea and pain. You will take this for two days starting tomorrow. - You will be taking Aspirin 81mg twice a day for DVT prevention unless instructed otherwise. - If you have constipation you should take Colace or Miralax (both [id number]). It takes most people 3-4 days to have a bowel movement. Follow-up: 2 weeks If you have any acute concerns or questions, please do not hesitate to contact the office at [phone]. You may contact Dr. English with any questions after hours through the hospital at [phone] or on his cell phone at [phone]. Stand Alone Forms: Anesthesia Discharge Inst., Malias.Nerve Block Instructions, Leslie Garnett ([facility]U) Referrals: Michael English MD [ [facility] STAFF PHYSICIAN] - 11/08/24 1:15 pm Equipment/Supplies: Walker Activity:: Activity as Tolerated Shower/Bathe:: 72 hours Diet:: As Tolerated Discharge Orders Discharge Orders: Discharge Order (Routine); Ordered 10/24/24 Ordered By: Leonel Camejo DS: Diagnosis Discharge Diagnosis (1) Osteoarthritis of right hip: Status: Resolved
--- NOTE | 2024-10-24 07:20 | ANES.PREOP_ITS ---
General Info Date of Service Date Performed: 10/24/24 Height: 4 ft 11 in Weight: 92.079 kg Body Mass Index (BMI): 41.0 Surgical Procedure: Operation Date: 10/24/24 07:50 Proposed Procedure Side Surgeon p Hip Total Hip Anterior, Actis Right Michael English MD Actual Procedure Side Surgeon p Hip Total Hip Anterior, Actis Right Michael Englsih MD Pre-Op Diagnosis Post-Op Diagnosis Osteoarthritis of right hip: Meds Allergies and Home Medications Allergies Allergy/AdvReac Type Severity Reaction Status Date / Time carbamide peroxide (From Allergy Intermediate horne my Verified 10/24/24 06:23 Debrox) ear and gives me an ear infection Home Medication ?Medication ?Instructions ?Recorded blood sugar diagnostic (Blood #100 strips 06/10/14 Glucose Test strips) blood-glucose meter #1 ea 06/10/14 lancets 28 gauge #100 ea 04/10/21 albuterol sulfate 90 mcg/actuation 2 puff inhalation QID PRN 06/11/24 aerosol inhaler (Ventolin HFA) shortness of breath or wheezing #8.5 grams atorvastatin 20 mg tablet 20 mg PO QHS #90 tabs 06/11/24 budesonide-formoterol HFA 160 2 puff inhalation BID ##3 06/11/24 mcg-4.5 mcg/actuation aerosol inhaler (Symbicort) furosemide 20 mg tablet 20 mg PO QAM PRN edema #30 tabs 06/11/24 ipratropium 0.5 mg-albuterol 3 mg 3 ml inhalation Q6H PRN ##1 06/11/24 (2.5 mg base)/3 mL nebulization soln metformin 500 mg tablet,extended 500 mg PO DAILY #90 tab-caps 06/11/24 release 24hr (osmotic) tetracycline 250 mg capsule 250 mg PO DAILY PRN Roseacia - 06/11/24 takes intermittently #30 tab-caps theophylline 400 mg 400 mg PO DAILY #90 tab-caps 06/11/24 tablet,extended release 24 hr glucosamine 750 [id number] 1 tab PO DAILY 10/08/24 no1 644 mg-C 30 mg-charlotte 1 mg tablet (Osteo Bi-Flex Triple Strength) prednisone 20 mg tablet 40 mg PO DAILY PRN 10/08/24 acetaminophen 500 mg tablet 1,000 mg (2 x 500 mg) PO TID #90 10/24/24 tabs aspirin 81 mg tablet,delayed 81 mg PO BID #60 tabs 10/24/24 release celecoxib 200 mg capsule 200 mg PO BID #60 caps 10/24/24 dexamethasone 4 mg tablet 4 mg PO DAILY #2 tabs 10/24/24 docusate sodium 100 mg capsule 100 mg PO BID PRN #28 caps 10/24/24 oxycodone 5 mg tablet 5 mg PO Q4H PRN pain #12 tabs 10/24/24 pantoprazole 40 mg tablet,delayed 40 mg PO DAILY #14 tabs 10/24/24 release Current Visit Medications: Current Medications Generic Name Dose Route Start Last Admin Trade Name Freq PRN Reason Stop Dose Admin Acetaminophen 1,000 mg 10/24/24 06:00 10/24/24 06:46 Acetaminophen 500 Mg Tab PO 10/24/24 23:59 1,000 mg PREOP MICHAEL Administration Acetaminophen 1,000 mg 10/24/24 07:13 Acetaminophen 500 Mg Tab PO 11/23/24 07:12 TID PRN PRN Analgesia Celecoxib 400 mg 10/24/24 06:00 10/24/24 06:48 Celecoxib 200 Mg Cap PO 10/24/24 23:59 400 mg PREOP MICHAEL Administration Docusate Sodium 100 mg 10/24/24 07:13 Docusate Sodium 100 Mg Cap PO 11/23/24 07:12 BID PRN PRN Constipation Ringer's Solution 1,000 mls @ 80 mls/hr 10/24/24 06:00 10/24/24 07:02 IV 10/24/24 23:59 80 mls/hr INFUSION MICHAEL Administration Cefazolin Sodium/Dextrose 2 gm in 50 mls @ 100 mls/hr 10/24/24 06:00 Ancef Duplex IVPB 10/24/24 23:59 PREOP MICHAEL Tranexamic Acid/Sodium Chloride 1,000 mg in 100 mls @ 600 mls/hr 10/24/24 06:00 IVPB 10/24/24 23:59 PREOP MICHAEL IV Miscellaneous Supplies 1 each 10/24/24 06:00 Iv Access IV 10/24/24 23:59 DIRECTED MICHAEL Ondansetron HCl 4 mg 10/24/24 07:13 Ondansetron 4 Mg/2 Ml Vial IVP 11/23/24 07:12 Q6H PRN PRN Nausea Oxycodone HCl 0 mg 10/24/24 07:13 Oxycodone 5 Mg Tab PO 11/23/24 07:12 Q3H PRN PRN Pain Polyethylene Glycol 17 gm 10/24/24 07:13 Polyethylene Glycol 3350 17 Gm Packet PO 11/23/24 07:12 BID PRN PRN Constipation Sodium Chloride 0 ml 10/24/24 06:00 Normal Saline Flush 10 Ml Syr IV 10/24/24 23:59 PRN PRN Sodium Chloride 0 ml 10/24/24 06:00 Normal Saline 10 Ml Vial IJ 10/24/24 23:59 DIRECTED PRN Sterile Water 0 ml 10/24/24 06:00 Water,Injection,Sterile 10 Ml Vial IJ 10/24/24 23:59 DIRECTED PRN Tranexamic Acid 1,300 mg 10/24/24 07:13 Tranexamic Acid 650 Mg Tab PO 10/24/24 23:59 ONCE PRN PFSH Active Problems Active Problems: Problem Status Onset Code Osteoarthritis of right hip Acute M16.11 Bilateral lower extremity edema Acute R60.0 Right hip pain Acute M25.551 Dyspnea Acute R06.00 LUQ pain Acute R10.12 Diverticula of intestine Acute K57.30 Tubular adenoma Acute D36.9 Muscle cramps at night Acute R25.2 Osteoarthritis Chronic M19.90 Increased BMI Acute 07/29/14 R63.8 Rosacea Acute L71.9 Osteopenia Acute M85.80 Hypercholesterolemia Acute E78.00 Gastroesophageal reflux disease with esophagitis Acute K21.0 DM (diabetes mellitus) Acute 05/02/14 E11.9 Asthma Acute J45.909 Medical History Medical History Cervical high risk HPV (human papillomavirus) test positive September 2022: Nl cytology/HPV+ (16/18/45 neg) -->colp: May 2022: Nl cytology/HPV+ (16/18/45 neg) 2016, 2013 and 2010 wnl. No hx abnl Depressive disorder Internal derangement of left knee Injection: 12/19/2018 Uterine leiomyoma ENLARGED UTERUS (cystic lestion) N/C in fibroid- U/S H/O balance disorder (02/09/18) Surgical History Surgical History History of colonoscopy (~08/01/20) History of bronchoscopy History of ethmoidectomy Status post cataract extraction (08/26/14) right eye 2017 Ligation of fallopian tube 1980 NOSE RECONSTRUCTION Extraction of cataract 08/20/14 RIGHT EYE; DR. ATKINS Tobacco Smoking/Tobacco Use Status: Never Passive smoking exposure: No Second hand exposure: Yes Alcohol Alcohol Intake: current Alcohol intake frequency: holidays/special occasions only Alcohol type: beer and hard liquor Substance Use Substance use: Never Substance use type: does not use Prental History History 3 Para 2 Hx # Term Pregnancies 2 Multiple births Hx # Pregnancies Ectopic pregnancies AB induced Hx Number of Living Children 2 AB spontaneous 1 Past Pregnancies Del. Date GA/Weeks # Preg Succ Route Wgt Sex Labor Lgth Anesth esia Location Prov Complic 05/26/75 40 Yes vaginal 4904.467 g Male Patty rCASIE Vital Signs and Lab Results Vital Signs Most Recent Vital Signs in EMR: Most Recent Vital Signs Temp Pulse Resp BP Pulse Ox 36.7 C 80 16 125/75 96 10/24/24 06:05 10/24/24 06:05 10/24/24 06:05 10/24/24 06:05 10/24/24 06:05 Lab Results Blood Type / Crossmatch: No Data to Display Complete Blood Count: White Blood Count 8.43 10^3/uL (4.4-10.8) 10/08/24 14:05 Red Blood Count 4.09 10^6/uL (3.93-5.22) 10/08/24 14:05 Hemoglobin 13.2 g/dL (11.2-15.7) 10/08/24 14:05 Hematocrit 39.8 % (36.0-46.0) 10/08/24 14:05 Platelet Count 273 10^3/uL (130-400) 10/08/24 14:05 Complete Metabolic Panel: Sodium 141 mmol/L (136-145) 10/08/24 14:05 Potassium 3.8 mmol/L (3.5-5.1) 10/08/24 14:05 Chloride 103 mmol/L (98-107) 10/08/24 14:05 Carbon Dioxide 29.3 mmol/L (21.0-32.0) 10/08/24 14:05 BUN 17 mg/dL (7-18) 10/08/24 14:05 Creatinine 0.6 mg/dL (0.55-1.02) 10/08/24 14:05 Est GFR (CKD-EPI 2020) 98.32 (mL/min/1.73m2) 10/08/24 14:05 Calcium 9.7 mg/dL (8.5-10.1) 10/08/24 14:05 Glucose 98 mg/dL (74-106) 10/08/24 14:05 Hemoglobin A1c 6.4 % (<5.7) H 10/08/24 14:05 Liver Function Panel: No Data to Display Coagulation Panel: No Data to Display Cardiac Panel: No Data to Display Arterial Blood Gas: No Data to Display Venous Blood Gas: No Data to Display Pancreas Panel: No Data to Display Thyroid Panel: No Data to Display Infectious Disease: No Data to Display Blood Cultures: No Data to Display Toxicology Panel: No Data to Display Anesthesia Assessment and Plan Anesthesia History Personal History: No History of Anesthesia Complications Family History: No Family History of Anesthesia Complications Exercise Tolerance Exercise Tolerance: Metabolic Equivalents>4 Pertinent Negatives Pertinent Negatives: No Symptoms of GERD Cardiac & Pulmonary Exam Cardiac Exam: Normal S1/S2 Heart Sounds Pulmonary Exam: Clear Bilateral Breath Sounds Implantable Cardiac Device Does patient have a Pacemaker or an ICD?: No Airway Exam Known Difficult Airway: No Mallampati Class: 2 Mouth Opening: Normal (> 3cm) Thyromental Distance: Less than 3 cm Neck Range of Motion: Full ROM Neck Circumference: Normal Teeth Condition: Normal Dentition ASA Classification ASA Score: ASA 2 Emergency Case?: No NPO Status NPO Status: NPO Clears >2 hours, Solids >8 hours Anesthesia Plan Resuscitation Status: Full Code Anesthesia Technique: Spinal Anesthesia Airway Planned: Natural Airway Monitors Used: Standard Monitors
[2024-10-24] MEDS: ceFAZolin 2 GM/50 ML BAG IVPB (07:37)
--- NOTE | 2024-10-24 07:49 | W.PM.OP ---
Operative Note Operative Note PRE-OP DIAGNOSIS: Right Hip Osteoarthritis POST-OP DIAGNOSIS: same PROCEDURE: Right Anterior Total Hip Arthroplasty with Intraoperative Navigation SURGEON: Michael English CUSTOMER ACCOUNT COORDINATOR: Leonel Camejo ANESTHESIA TYPE: Spinal Refer to Anesthesia Record ESTIMATED BLOOD LOSS: 100 PATHOLOGY: none sent TOURNIQUET TIME: 0 COMPLICATIONS: None Patient was transported to: PACU Patient's condition: stable Implants: 1. Depuy [place] Acetabular Component, 48mm 2. Depuy Acetabular Liner, [id number] 3. Depuy Actis Standard Collared Femoral Stem, Size 5 4. Depuy Altrx Ceramic Femoral Head, Size 32+1mm Indications: I have seen Ariadne in clinic for symptoms of hip arthritis, confirmed with radiographic findings. Se has exhausted nonoperative methods and was having significant limitations in daily function and desired better function and less pain. I discussed the technical details of a hip replacement. I explained the risks of the procedure to include, but not limited to, bleeding, infection, pain, stiffness, fracture, damage to nerves and vessels, damage to muscles and tendons, loosening, instability, leg length inequality, need for repeat procedure, blood clot and cardiopulmonary demise. Despite these risks, Ariadne elected to proceed. Findings: There was significant signs of arthritis throughout the hip. Procedure Description: Ariadne was greeted in the preoperative holding area where the correct side was identified and marked. The consent was reviewed with the patient and signed. The history and physical was updated. All questions were answered. She was taken back to the operating room. A spinal anesthestic was then administered. The feet were wrapped with cast padding and Coban and then placed into the boot liners and then into the boots. Care was taken to protect the skin and make sure the heels were fully down and the boots were stable. The patient was then positioned onto the HANA table. Both legs were held in a neutral position. SCDs were applied. The patient was then slid down onto a peroneal post. Her pannus was held over with Ioband. Prophylactic antibiotics in the form of Cefazolin were administered. 1g of Tranxemic Acid was given intravenously within 30 minutes of incision. The right leg was then prepped with Chloraprep and draped in a standard fashion. A second prep with Chloraprep was performed prior to placement of a shower-curtain type drape with Iodine impregnated skin protection. A timeout to confirm correct identity, side and site, procedure, allergies, anesthesia, and medical concerns was performed. An obliquely oriented incision was made starting lateral to the ASIS and running distal over the Tensor Fascia Katie (TFL) muscle belly toward the fibular head, approximately 10cm. The skin and soft tissue was dissected sharply, through Kerry?s fascia, and to the fascia of the TFL. With the fascia and superior border of the IT band identified, the fascia was incised with a new knife just above any perforators from the IT band. The TFL muscle belly was bluntly dissected away from the fascia and moved laterally. The fat between TFL and rectus was identified to ensure the dissection was not within the TFL. Blunt dissection created space between abductors and the capsule and retractor was placed over the lateral femoral neck. The fibers of the rectus femoris tendon were identified and these were freed from the anterior capsule. A second cobra retractor was placed around the medial femoral neck. The TFL was further retracted laterally to show the deep fascia. Careful dissection through this layer identified three main crossing vessels of the lateral femoral circumflex. These were cauterized in multiple locations and then cut without any noticeable bleeding. The TFL was further released bluntly from the deep fascia to expose anterior hip capsule and fat The soft tissue orthopaedic retractor was then placed beneath the TFL and against sartorius and medial soft tissues to protect and retract the soft tissues. A T-capsulotomy was then performed starting at the superior lateral acetabulum and moving distally to the intertrochanteric ridge. These capsular flaps were tagged with a No. 1 Vicryl and elevated from within. The capsular flaps were released to the shoulder of the lateral neck and to the lesser trochanter to give excellent visualization of the proximal femur. A neck osteotomy was performed using an oscillating saw based on preoperative templates. This cut started in the shoulder and of the lateral neck and exited medially. The saw was at all times directed medially to avoid injury to the greater trochanter. Gross traction was applied to the leg and the osteotomy opened. The femoral head was removed with a corkscrew, making sure to protect the TFL on its exit. Traction was released after head removal. This was measured on the back table to determine the starting reamer size. Portions of the rectus obscuring visualization were minimally elevated off the superior acetabulum. An anterior retractor was placed over the anterior wall between capsule and labrum and attached to the Gripper retraction system. The femur was rotated to 90 degrees and medial capsule was fully released until the lesser trochanter was palpable and visible; the femur was returned to 30 degrees. A posterior retractor was placed similarly between capsule and labrum. This provided excellent visualization. The contents of the cotyloid fossa were removed with electrocautery and the labrum was removed with a knife. There was a notable floor osteophyte. There was significant chondromalacia of the superior acetabulum. Acetabular reaming began with a 44mm reamer. This first reaming was directed anterior to posterior and medial to get down to the true floor. This was inspected and reamed until the true floor was reached. The anterior retractor was then released and entry and exit was provided by traction on the capsular flaps. I then reamed sequentially up to a 48mm reamer where good fit was obtained. The larger reamers were oriented based on anatomical reference of the anterior and lateral cheng to ensure proper abduction and anteversion. Positioning and size was confirmed with the fluoroscopy. A 48mm Depuy [place] acetabular component was selected. The acetabulum was reamed around the periphery with the selected acetabular size to prevent a rim fit. The deep tissues were irrigated. The acetabular component was then impacted in a position of about 40-45 degrees of abduction and 15-20 degrees of anteversion, using the patient?s anatomy as the ultimate landmark. Fluoroscopy was used to confirm this. There was excellent extract wringer of the acetabular component and the inserting handle was removed. The acetabular liner, Depuy [id number] polyethylene liner, was inserted and lined up with the tines of the acetabular component. There was no soft tissue interposition. The liner was then impacted into position and confirmed to be well-seated. A portion of the dena-articular cocktail was then injected around the acetabulum into the capsule and periosteum. This cocktail consisted of 123mg of Ropivacaine, 0.25mg of Epinephrine, 0.04mg of Clonidine, and 15mg of Ketorolac, diluted to 50cc. The leg was rotated to 120 degrees. Any remaining medial capsule was released until the lesser trochanter was easily palpable. A retractor was placed medially. The lateral capsule was further released into the shoulder to allow access to the greater trochanter. A Meléndez retractor was placed over the greater trochanter which allowed the trochanter to flip in front of the capsule for excellent exposure. The leg was brought down into maximal extension and 20 degrees of adduction while ensuring there was no impingement on the acetabulum. Any remnant capsule within the trochanter was released. Piriformis and obturator externis were identified and protected. There was excellent access to the proximal femur. The lateral neck remnant was removed with a rongeur. A blunt canal probe was used to identify the canal and trajectory for later broaching. A box osteotome initiated the broach course. A small curved rasp and a curved curette were used to work laterally. Broaching then began with a starter Actis broach. This was inserted manually around the trochanter and into the canal before mallet blows. The broach was seated to the neck cut level based on the neck cut and the preoperative template. Sequential broaching was continued with the [employer] pneumatic broaching device until a tight fit was obtained with good rotational control of the femur. A trial standard neck was inserted along with a +1 trial head. The leg was brought out of extension and adduction and then reduced with traction and internal rotation. The leg was stable anteriorly in a position of 30 degrees of extension and 90 degrees of external rotation. Fluoroscopy was used to ensure there was no fracture and the stem was seated well. Leg lengths were checked with an AP pelvis and pelvic reference points. BriefCam navigation system was used to confirm appropriate positioning and leg length and offset. Once content with the desired offset and leg lengths, the leg was brought back into extension, external rotation and adduction. The periosteum and surrounding tissue was injected with remaining portion of the dena-articular cocktail. The proximal femur was irrigated as well as the deep tissues. The [employer] standard collared stem, size 5, was then manually inserted into the proximal femur making sure to control rotation. It was then malleted into position with light blows, giving breaks to allow bone expansion and decrease risk of fracture. The selected Depuy Altrx Ceramic Head, size 32+1mm, was then placed onto the clean and dry trunnion and secured with impaction onto the tapered fit. The leg was brought back out of extension and adduction and reduced with traction and internal rotation. Stability was confirmed with no shuck at 90 degrees of external rotation and 30 degrees of extension. No impingement through range of motion arc. Final x-ray images were obtained with fluoroscopy to confirm adequate positioning and no intraoperative fracture. The deep tissues were thoroughly irrigated with Surgiphor, betadine solution. This was allowed to sit in the wound for 3 minutes before being thoroughly irrigated out with normal saline. The capsule was then reapproximated with the previously placed sutures and the indirect head of the rectus was inspected and reapproximated with a #1 Vicryl. The TFL fascia was finally closed with a No. 2 Stratafix, barbed suture. Deep tissues were then reapproximated with 0 Vicryl and a running 2-0 Vicryl. The skin was closed with a running 4-0 Monocryl in a subcuticular fashion. This was reinforced with skin glue. A Mepilex silver dressing was applied. At the end of the case, all counts were correct. Ariadne was transferred to the hospital bed without difficulty and suffering no apparent complication. Ariadne has a good prognosis. Physical therapy will start today and without restrictions, weight-bearing as tolerated. Aspirin 81mg BID will be used for DVT prophylaxis. Date of Procedure: 10/24/24
[2024-10-24] MEDS: TRANEXAMIC ACID/SOD. CHL. 1,000 MG/100 ML BAG 600 MG IVPB (07:55)
--- NOTE | 2024-10-24 08:55 | DI.RAD_ITS ---
Exam(s) XR HIP RT IN OR EXAM: XR HIP RT IN OR CLINICAL HISTORY: Osteoarthritis of right hip: TECHNIQUE: 2D and realtime digital imaging was performed. CONTRAST MATERIAL: Refer to procedure report. COMPARISON: CR XR PELVIS AP from 10/08/2024 FINDINGS: Fluoroscopy was provided for Dr. English during the performance of a right total hip arthroplasty. Please refer to the procedure report for complete details. Ka,r=3.61 mGy IMPRESSION: RADIATION DOSE DELIVERED: 0.0 0.0 0
[2024-10-24] MEDS: ePHEDrine 25 MG/5 ML Syringe IVP (09:37)
--- NOTE | 2024-10-24 11:15 | W.ANESPOSTOP ---
Postoperative Evaluation Date, Time and Location Date Performed: 10/24/24 Time Performed: 10:17 Patient Location: Day Surgery Unit Vital Signs Most Recent Imported Vital Signs: Most Recent Vital Signs Temp Pulse Resp BP Pulse Ox 36 C L 61 16 107/57 L 100 10/24/24 10:17 10/24/24 10:17 10/24/24 10:17 10/24/24 10:17 10/24/24 10:17 Pain Score Most Recent Pain Score: Most Recent Pain Score Pain Level 4 10/24/24 10:17 Assessment Mental Status: Awake (Alert & Oriented to Patient Baseline) Airway and Respiratory Function: Patent airway with normal (patient baseline) respiratory exam Cardiovascular Function: Hemodynamically Stable Hydration Status: Adequately Hydrated Nausea & Vomiting: No Nausea or Vomiting Pain: Pain is tolerable per patient Peripheral Nerve Block: Patient did not receive a nerve block
[2024-10-24] MEDS: oxyCODONE 5 MG TAB PO ×4 (11:22→18:54)
[2024-10-24] MEDS: LORazepam 20 MG/10 ML VIAL IVP (13:03)
[2024-10-24] MEDS: fentaNYL 100 MCG/2 ML VIAL IVP (13:22)
[2024-10-24] MEDS: ceFAZolin 1 GM/50 ML BAG IVPB ×2 (14:31→22:32)
--- NOTE | 2024-10-24 15:42 | W.PC.ACHO ---
Registration Status: Primary Language: Preferred Language: Medical / Surgical History (Last Reviewed 10/24/24 @ 06:35 by Jeana Matt) Cervical high risk HPV (human papillomavirus) test positive Depressive disorder Internal derangement of left knee Uterine leiomyoma H/O balance disorder (02/09/18) (Last Reviewed 10/24/24 @ 06:35 by Jeana Matt) History of colonoscopy (~08/01/20) History of bronchoscopy History of ethmoidectomy Status post cataract extraction (08/26/14) Ligation of fallopian tube NOSE RECONSTRUCTION Extraction of cataract Most Recent Vital Signs Temperature 36.3 C L 10/24/24 14:51 Temperature Source Temporal Artery Scan 10/24/24 12:37 Pulse 90 10/24/24 14:51 Pulse Rhythm Regular 10/24/24 06:05 Pulse 72 10/24/24 14:00 Respiratory Rate 16 10/24/24 14:51 Respiratory Depth Normal 10/24/24 06:05 Blood Pressure 117/71 10/24/24 14:51 Blood Pressure Mean 83 10/24/24 13:56 Blood Pressure Position Left Lateral 10/24/24 12:37 Pulse Oximetry 97 10/24/24 14:51 Respiratory End-tidal CO2 42 10/24/24 14:00 Oxygen Delivery Method Room Air 10/24/24 14:51 Oxygen Flow Rate 0 10/24/24 12:37 Pain Level 8 10/24/24 15:41 Comment 1232 Contacted anesthesia regarding pain control. 1215 dose of oxycodone, no effect at this point. VSS. Pt reports 10/10 pain; crying. Repositioned in bed with no results. Decision made by anesthesia to return patient to PACU. IV LR reattached 250cc remaining. 1246 Handoff to Ashok Garcia RN. Cellphone and eyeglasses with patient. Walker and bag of belongings in DSU. 1305 MD updated on patient. 10/24/24 12:37 Allergies carbamide peroxide (From Debrox) Allergy (Intermediate, Verified 10/24/24 06:23) horne my ear and gives me an ear infection Active Medications Generic Name Dose Route Start Last Admin Trade Name Freq PRN Reason Stop Dose Admin Acetaminophen 1,000 mg 10/24/24 06:00 10/24/24 06:46 Acetaminophen 500 Mg Tab PO 10/24/24 23:59 1,000 mg PREOP MICHAEL Administration Acetaminophen 1,000 mg 10/24/24 07:13 10/24/24 14:31 Acetaminophen 500 Mg Tab PO 11/23/24 07:12 1,000 mg TID PRN PRN Administration Analgesia Celecoxib 400 mg 10/24/24 06:00 10/24/24 06:48 Celecoxib 200 Mg Cap PO 10/24/24 23:59 400 mg PREOP MICHAEL Administration Fentanyl 0 mcg 10/24/24 12:46 10/24/24 13:22 Fentanyl 100 Mcg/2 Ml Vial IVP 11/23/24 12:45 50 mcg DIRECTED PRN Administration Ringer's Solution 1,000 mls @ 80 mls/hr 10/24/24 06:00 10/24/24 15:10 IV 10/24/24 23:59 80 mls/hr INFUSION MICHAEL Administration Cefazolin Sodium/Dextrose 2 gm in 50 mls @ 100 mls/hr 10/24/24 06:00 10/24/24 07:55 Ancef Duplex IVPB 10/24/24 23:59 Infused PREOP MICHAEL Infusion Tranexamic Acid/Sodium Chloride 1,000 mg in 100 mls @ 600 mls/hr 10/24/24 06:00 10/24/24 08:05 IVPB 10/24/24 23:59 Infused PREOP MICHAEL Infusion Cefazolin Sodium/Dextrose 1 gm in 50 mls @ 100 mls/hr 10/24/24 14:00 10/24/24 14:31 Ancef Duplex IVPB 10/25/24 06:29 100 mls/hr Q8H MICHAEL Administration Lorazepam 0.5 mg 10/24/24 12:46 10/24/24 13:03 Lorazepam 20 Mg/10 Ml Vial IVP 11/23/24 12:45 0.5 mg DIRECTED PRN Administration Anxiety Oxycodone HCl 0 mg 10/24/24 07:13 10/24/24 15:41 Oxycodone 5 Mg Tab PO 11/23/24 07:12 10 mg Q3H PRN PRN Administration Pain IV IV Catheter Type [Left Peripheral IV Antecubital] IV Catheter Gauge [Left 20 Antecubital] Diet Orders Category Date Time Status Diabetes Consistent CHO [DIET] Nutrition 10/24/24 Lunch Active [facility] Documentation Fingerstick Glucose Start: 10/24/24 09:45 Freq: Status: Active Protocol: Activity Type Activity Date Activity User E-sign Co-sign Detail Recorded Client Recorded Date Recorded By Document 10/24/24 09:45 DEO DAGIGI(3) [id number] 10/24/24 09:45 BKG DAEMON(4) Intake and Output - 24 Hour Total 08/02/24 08:15 thru 10/24/24 15:05 Intake Total 1460 Output Total 100 Balance 1360 Weight 92.079 kg Intake: IV 1110 Oral 350 Output: Estimated Blood Loss 100 Other: Emesis Description None v v v v v v v v v Sending and/or Receiving Nurses: Please use comment section below to note any information pertinent to the patient hand-off not included above. Information / Comments: Report received from:jeana
--- NOTE | 2024-10-24 17:07 | PT.INIE ---
PT Notes Visit Reasons: OA R Hip Physical Therapy Day Surgery Initial Evaluation Date: 10/24/24 Referring Doctor: Dr. English PT Orders: PT CONSULT: s/p ortho surgery Precautions: standard, WBAT RLE Patient Profile/Admitting Diagnosis: Josie is a 69-year-old female with right hip OA, now status post right MARISOL, postop day 0. She has been admitted overnight for pain management. Social History/Home Situation: Josie lives in a private home with one-step to enter. Normally ambulates without assistive device. 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 Lives alone, with plans support from her grandchildren upon return home. Equipment Owned/DME: [employer] Subjective: Josie states that she was able to walk to the toilet with nursing earlier, and had significant pain in the right hip. Describes lateral hip pain when putting weight on the leg. Objective: General Observation: Resting in bed with IV in LUE. TIFFANI stockings in place. ANO x 3 Mental Status: A&Ox3 Pain: 4/10 at rest; 5/10 with ambulation ROM: Right Upper Extremity: WFL Left Upper Extremity: WFL Right Lower Extremity: functionally demonstrates right hip flexion to 80 degrees Left Lower Extremity: WFL Strength: Right Upper Extremity: WFL Left Upper Extremity: WFL Right Lower Extremity: Quads 3/5. Able to pump ankles bilat Left Lower Extremity: WFL Sensation: Intact distally Bed Mobility/Transfers: Supine to sit : Supervision with head of bed elevated to 30 degrees Sit to stand: CGA Stand to sit : CGA Gait: Ambulates 10 feet with FWW and CGA. Cued for increasing weightbearing through upper extremities during right lower extremity weightbearing to reduce pain. BP post ambulation 120/66. Balance: Static Sitting: normal Dynamic Sitting: good Static Standing: fair Dynamic Standing: fair Special Tests: Mobility Limitations Standardized Measure [facility] AM-PAC 6 clicks Basic Mobility Inpatient Short Form: Raw Score: 20 CMS Score: 36% impairent Informed Consent/Education: Patient instructed in purpose of PT consult. Packet containing MARISOL exercise protocol has been given to patient. Education and training on initial set of exercises that can be done at home have been completed with patient. Access Code: [email or web address] URL: [email or web address] Date: 10/24/2024 Prepared by: Ashia Hendricks Exercises - Supine Ankle Pumps - 3 x daily - 7 x weekly - 1 sets - 10 reps - Supine Quadricep Sets - 3 x daily - 7 x weekly - 1 sets - 10 reps - Supine Gluteal Sets - 3 x daily - 7 x weekly - 1 sets - 10 reps - Seated Long Arc Quad - 3 x daily - 7 x weekly - 1 sets - 10 reps Assessment: Patient presents with clinical signs and symptoms consistent with current/admitting diagnoses that have resulted to mobility limitations, gait instability, generalized weakness, and impairment of motor control. Pain increased with weightbearing activity, but seemingly improved vs earlier trial, with pain increasing from 4/10 to 5/10 with ambulation. Based on current pain levels and limited home supports upon discharge, recommend HH PT early in her recovery. She currently demonstrates the following impairment level findings: 1. Decreased strength to LLE major muscle groups 2. Impaired standing balance 3. Limitation of joint range of motion in left hip Impairments are contributing to the following functional limitations: 1. Inability to safely ambulate without assistive device 2. Increase completion time for mobility ADL performance 3. Increased fall risk Patient is assessed as low complexity based on the following: History: 69-year-old female with impairment level findings, functional limitations, and past medical history as indicated above Examination: Demonstrable impairment in strength, balance, and mobility level with underlying impairments and functional limitations as documented above Presentation: stable Decision Making: low complexity Goals: N/A. PT evaluation and 1-2 treatment sessions only for functional mobility training using recommended AD and for HEP instruction. Plan of Care/Treatment Plan: N/A. PT evaluation and 1-2 treatment session only for functional mobility training using recommended AD and for HEP instruction. DISCHARGE RECOMMENDATIONS: Home with PT and family support TREATMENT CODE/TIME: 51489, 21129 ([id number]) Thank you for the opportunity to participate in the care of this patient. Ashia Hendricks, PT, DPT [facility] All Active Problems (Updated 10/24/24 @ 08:19 by Taylor Nuñez RN) History of total right hip replacement (Acute 10/24/24) Bilateral lower extremity edema (Acute) Right hip pain (Acute) Dyspnea (Acute) LUQ pain (Acute) Diverticula of intestine (Acute) Tubular adenoma (Acute) Muscle cramps at night (Acute) Osteoarthritis (Chronic) Increased BMI (Acute 07/29/14) Rosacea (Acute) Osteopenia (Acute) DEXA-04/16 Hypercholesterolemia (Acute) Gastroesophageal reflux disease with esophagitis (Acute) EGD 04/18 DM (diabetes mellitus) (Acute 05/02/14) Asthma (Acute) Medical History (Updated 10/24/24 @ 08:19 by Taylor Nuñez RN) Cervical high risk HPV (human papillomavirus) test positive September 2022: Nl cytology/HPV+ (16/18/45 neg) -->colp: May 2022: Nl cytology/HPV+ (16/18/45 neg) 2016, 2013 and 2010 wnl. No hx abnl Depressive disorder Internal derangement of left knee Injection: 12/19/2018 Uterine leiomyoma ENLARGED UTERUS (cystic lestion) N/C in fibroid- U/S H/O balance disorder (02/09/18) Surgical History (Updated 10/24/24 @ 08:18 by Taylor Nuñez RN) History of colonoscopy (~08/01/20) History of bronchoscopy History of ethmoidectomy Status post cataract extraction (08/26/14) right eye 2017 Ligation of fallopian tube 1980 NOSE RECONSTRUCTION Extraction of cataract 08/20/14 RIGHT EYE; DR. ATKINS
[2024-10-24] MEDS: metFORMIN C.R. 500 MG TABCR PO (17:32)
[2024-10-24] MEDS: Budesonide/Formoterol 160/4.5 6 GM 60 PUFF INH IH (20:02)
[2024-10-24] MEDS: Tranexamic Acid 650 MG TAB 1300 MG PO (20:20)
[2024-10-24] MEDS: Aspirin E.C. 81 MG TABEC PO (20:22)
[2024-10-24] MEDS: Atorvastatin 20 MG TAB PO (20:22)
[2024-10-24] MEDS: Celecoxib 200 MG CAP PO (20:25)
[2024-10-24] MEDS: Normal Saline Flush 10 ML SYR IV (20:25)
[2024-10-25 05:01] VITALS: BP 139/68; PULSE 80; RESP 20; TEMP 36.5; O2SAT 95
[2024-10-25] MEDS: ceFAZolin 1 GM/50 ML BAG IVPB (06:09)
[2024-10-25 07:52] VITALS: BP 120/62; PULSE 69; RESP 16; TEMP 36.2; O2SAT 94
[2024-10-25] MEDS: Budesonide/Formoterol 160/4.5 6 GM 60 PUFF INH IH (08:02)
[2024-10-25] MEDS: Aspirin E.C. 81 MG TABEC PO (09:20)
[2024-10-25] MEDS: Glucosamine/Chondroitin CAP 1 CAP PO (09:20)
[2024-10-25] MEDS: Celecoxib 200 MG CAP PO (09:20)
[2024-10-25] MEDS: Dexamethasone 4 MG TAB PO (09:20)
[2024-10-25] MEDS: oxyCODONE 5 MG TAB PO (09:21)
--- NOTE | 2024-10-25 12:10 | PT.INTREAT ---
PT Notes Visit Reasons: OA R Hip Inpatient Physical Therapy Treatment Note [facility] Date: 10/25/2024 PRECAUTIONS:WBAT RLE SUBJECTIVE: Pt reports her leg hurts but the pain is nothing like she had yesterday and she is looking forward to going home today. OBJECTIVE: upright agreeable and motivated to get moving.? PAIN:07/23 after meds right hip and thigh VITALS: ?monitored by nursing Therapeutic Activities ([id number][]): Direct one-on-one instruction in dynamic activities to improve functional performance. ? BED MOBILITY/TRANSFERS? Supine-sit: CGA and increased time? Sit-supine: min A for RLE ? Sit-stand: SBA? Stand-sit: SBA ? Bed-Chair: SBA with 4WW ? Chair-bed: SBA with 4WW Provided skilled cues and instruction on performance and technique throughout. - Facilitated safe and correct performance of level surface ambulation covering a distance of 100 feet x 2 using use 4 wheeled walker with SBAand wheelchair follow for safety. Did not report of any increased pain. Denied headache, chest pain, and lightheadedness throughout activity. Minimal verbal cueing provided for AD management, directional changes, and posture ----Walker height lowered to allow pt to weight bear . Pt demonstrates ability to control 4WW and manage the brakes appropriately -- Stairs: 3 4 steps? and 2 6 steps with rails SBA with continuous cues for sequencing descending step to pattern [id number] Pt reviewed MARISOL HEP protocol pt able to demonstrate 5 reps of each. increased time to perform hip abd/add and heelslide require rest between reps. ASSESSMENT:?Pt tolerated session well she demonstrates ability to perfrom transfers and ambulation with 4WW safely. She will require assist to get her leg into bed initially but anticipate this need will reduce as her strength returns. Pt 4WW brake adjust to ensure it holds tightly. PLAN: cont PT until d/c to home later today TREATMENT CODE/TIME: 74956,31266 / [id number] DISCHARGE RECOMMENDATION: Home with HEP and PT as needed
--- NOTE | 2024-10-25 12:45 | INITIAL_ITS ---
Date of service: 10/25/24 Time of Service: 12:45 Care Management Initial Assmt Initial Assessment Reason for Hospitalization: OA R Hip Functional Status/Living Situation Town of Residence: [place] Advance Directives Advance Directives: Do you have an Advance Directive: N 11/18/22 15:52 AD On File at [facility]: N 11/18/22 15:52 Date Asked 09/21/24 09/21/24 10:31 AD Date Reviewed COLST On File at [facility] COLST Date Scanned Code Status Resuscitation Status Full Code Portal Pt does not currently have a portal and education provided: Yes Insurance Coverage/Financial Issues Insurance: Medicare Part A & B CIG[employer] Medicare Supplement Ins Care Team Visit Care Team Role Provider Type Lily Malagon, FANNY Primary Care Provider NURSE PRACTITIONER [facility] Other Providers OTHER Michael English MD Admit Provider [facility] STAFF PHYSICIAN Attending Provider Discharge Potential Discharge Needs: PT Evaluation, PCP F/U Appt and Surgical F/U Appt Anticipated Barriers to Discharge: None Identified Patient/Family Education Needs: Review discharge instructions, discuss Ask Me Three Transportation: Private vehicle Plan: Anticipate Ariadne will be discharged home once medically ready. She will follow up with her community provider, surgeon, likely PT, and continue per her plan of care as directed. She will transport via private vehicle. CM will continue to [facility]. Social Determinants of Health Screening Social Determinants of health last assessed in clinic: 10/25/24 Will the Patient Participate in the Screening?: Yes Do you worry about having a steady place to live?: no Problems where you live: no known problems In the past 12 months, have you had to go without electric, gas, oil or water in your home?: no 1. Within the past 12 months, we worried whether our food would run out before we got money to buy more.: Never true 2. Within the past 12 months, the food we bought just didn't last and we didn't have money to get more.: Never true Has lack of transportation kept you from medical appointments or from doing things needed for daily living?: no Has anyone in your life made you feel unsafe or unsupported?: no How hard is it for you to pay for the very basics like food, housing, medical care, and heating? Would you say it is:: Not hard at all Do you want help finding or keeping work or a job?: I do not need or want help If for any reason you need help with day-to-day activities such as bathing, prep aring meals, shopping, managing finances, etc., do you get the help you need?: I don?t need any help How often do you feel lonely or isolated from those around you?: Never Do you speak a language other than Japanese at home?: No PFSH All Active Problems (Updated 10/24/24 @ 08:19 by Taylor Nuñez RN) History of total right hip replacement (Acute 10/24/24) Bilateral lower extremity edema (Acute) Right hip pain (Acute) Dyspnea (Acute) LUQ pain (Acute) Diverticula of intestine (Acute) Tubular adenoma (Acute) Muscle cramps at night (Acute) Osteoarthritis (Chronic) Increased BMI (Acute 07/29/14) Rosacea (Acute) Osteopenia (Acute) DEXA-04/16 Hypercholesterolemia (Acute) Gastroesophageal reflux disease with esophagitis (Acute) EGD 04/18 DM (diabetes mellitus) (Acute 05/02/14) Asthma (Acute) Medical History (Updated 10/24/24 @ 08:19 by Taylor Nuñez RN) Cervical high risk HPV (human papillomavirus) test positive September 2022: Nl cytology/HPV+ (16/18/45 neg) -->colp: May 2022: Nl cytology/HPV+ (16/18/45 neg) 2016, 2013 and 2010 wnl. No hx abnl Depressive disorder Internal derangement of left knee Injection: 12/19/2018 Uterine leiomyoma ENLARGED UTERUS (cystic lestion) N/C in fibroid- U/S H/O balance disorder (02/09/18) Surgical History (Updated 10/24/24 @ 08:18 by Taylor Nuñez RN) History of colonoscopy (~08/01/20) History of bronchoscopy History of ethmoidectomy Status post cataract extraction (08/26/14) right eye 2017 Ligation of fallopian tube 1980 NOSE RECONSTRUCTION Extraction of cataract 08/20/14 RIGHT EYE; DR. ATKINS Family History Mother , AGE 58 Diabetes Hyperlipidemia COPD (chronic obstructive pulmonary disease) Uterine cancer Breast cancer Ovarian cancer Father , AGE 68 Heart disease Throat cancer Sister No problems noted. Brother HIV (human immunodeficiency virus infection) Son No problems noted. Daughter Asthma Brother No problems noted. Maternal Grandfather No problems noted. Paternal Grandfather No problems noted. Maternal Grandmother No problems noted. Paternal Grandmother No problems noted. Social History (Updated 06/09/22 @ 14:27 by Bharati Owens) Smoking/Tobacco Use Status: Never Second Hand Exposure: Yes Smoking risk assessment performed?: Yes Alcohol Intake: current Alcohol Intake frequency: holidays/special occasions only Alcohol type: beer and hard liquor Drug use: Never Substance use type: does not use Caregiver/Support person: No Household members: none Housing: house Communication Needs: None current occupation: TRANSIT COORDINATOR Pets and animals: Yes Pets and animals: cat(s) and dog(s) Sexually active: No Do you think of yourself as: straight/heterosexual Current gender identity: female What is your relationship status?: How often do you talk on the phone with friends or family?: three or more times per week How often do you get together with friends or relatives?: once per week How often do you attend mormon or nondenominational services?: decline to answer Do you belong to any clubs or organized social groups?: no Panel score (0-1 are the most socially isolated patients): 1 What type of physical activity do you participate in: none Frequency: does not exercise Shyanne/Shinto: Uatsdin Special shyanne needs: No Seatbelt use: always Helmet use: Yes Helmet use: sometimes Drive intox or ride w/intox boom truck driver: No Water heater temp set <120 deg: Yes Working smoke detector in home: Yes Fire extinguisher in home: Yes Carbon monox detector in home: Yes Firearms in home: Yes Firearms unloaded and locked: Yes Do you feel safe at home: Yes Do you feel safe in your relationship?: Yes Victim of physical abuse: No Victim of emotional abuse: No Victim of sexual abuse: No Additional Social history: lives alone Female Reproductive History Menstrual control method: none History History 3 Para 2 Hx # Term Pregnancies 2 Multiple births Hx # Pregnancies Ectopic pregnancies AB induced Hx Number of Living Children 2 AB spontaneous 1 Past Pregnancies Del. Date GA/Weeks # Preg Succ Route Wgt Sex Labor Lgth Anesth esia Location Prov [facility] 05/[birth year]75 40 Yes vaginal 4904.467 g Male Patty rCASIE Readmission Within the Past 30 Days Yes or No: No
--- NOTE | 2024-10-25 12:51 | DSE_ITS ---
Date of service: 10/25/24 Time of Service: 07:50 DS: Diagnosis Discharge Diagnosis (1) Osteoarthritis of right hip: Status: Resolved Discharge Plan Disposition Patient Disposition: Home Condition: Good Discharge Details Reason For Visit: OA R Hip Admit Date/Time: 10/24/24 07:13 Admit Provider: Michael English Attending Provider: Michael English Primary Care Provider: [facility] Course Hospital Course: Ariadne was admitted to the medical/surgical floor following the procedure for observation and pain control. The surgery was tolerated well without any notable medical, surgical, or anesthetic complications. Mobilization began postoperatively. She was voiding spontaneously. Vitals were stable. Physical therapy worked with the patient and was cleared for discharge home. No acute medical issues. Pain was controlled on oral regimen. Home Meds and New Rx's Prescriptions: New acetaminophen 500 mg tablet 1,000 mg PO TID Qty: 90 3RF aspirin 81 mg tablet,delayed release (DR/EC) 81 mg PO BID Qty: 60 0RF celecoxib 200 mg capsule 200 mg PO BID Qty: 60 0RF dexamethasone 4 mg tablet 4 mg PO DAILY Qty: 2 0RF docusate sodium 100 mg capsule 100 mg PO BID PRNQty: 28 0RF pantoprazole 40 mg tablet,delayed release (DR/EC) 40 mg PO DAILY Qty: 14 0RF oxycodone 5 mg tablet 5 mg PO Q4H MDD 6 tabs PRN (Reason: pain) Qty: 12 0RF Continued albuterol sulfate [Ventolin HFA] 90 mcg/actuation HFA aerosol inhaler 2 puff inhalation QID PRN (Reason: shortness of breath or wheezing) Qty: 8.5 6RF atorvastatin 20 mg tablet 20 mg PO QHS Qty: 90 3RF budesonide-formoterol [Symbicort] 160-4.5 mcg/actuation HFA aerosol inhaler 2 puff Inhalation BID Qty: 3 4RF ipratropium-albuterol 0.5 mg-3 mg(2.5 mg base)/3 mL solution for nebulization 3 ml Inhalation Q6H PRN Qty: 1 0RF tetracycline 250 mg capsule 250 mg PO DAILY PRN (Reason: Roseacia - takes intermittently) Qty: 30 1RF theophylline 400 mg tablet extended release 24 hr 400 mg PO DAILY Qty: 90 4RF Rx Instructions: Note change from twice a day dosing to once a day. furosemide 20 mg tablet 20 mg PO QAM PRN (Reason: edema) Qty: 30 1RF Osteo Bi-Flex Triple Strength 750 mg-644 mg- 30 mg-1 mg tablet 1 tab PO DAILY (DME) blood-glucose meter 1 EACH misc 1 ea Miscellaneous twice weekly Qty: 1 Rx Instructions: FOR ONE TOUCH ULTRA MINI DIAGNOSIS CODE 250.02 (DME) Blood Glucose Test 1 EACH strip 1 ea Miscellaneous DAILY Qty: 100 Rx Instructions: FOR ONE TOUCH ULTRA MINI METER. PT DOES NOT USE INSULIN. DIAGNOSIS CODE 250.02 (DME) lancets 28 gauge misc 1 ea Miscellaneous DAILY Qty: 100 3RF Rx Instructions: delica- NO INSULIN. DIAGNOSIS CODE 250.02 once daily No Action prednisone 20 mg tablet 40 mg PO DAILY PRN Patient Comments: TAKE TWO TABLETS BY MOUTH EVERY DAY FOR 5 DAYS metformin 500 mg tablet extended release 24 hr 500 mg PO DAILY Patient Comments: TAKE ONE TABLET BY MOUTH EVERY DAY Discharge Instructions Additional Instructions: Total Hip Discharge Instructions Activity: The most important activity is to walk. You should try to take short walks a few times a day. You have no restrictions on movement or positioning, but do not try to force what you do. You will find some stiffness and weakness with hip flexion (lifting your knee). Do not try to strengthen this too early, continue to practice walking and stairs and this will come. - Outpatient physical therapy can be helpful to help return you to a normal gait and improve your flexibility and strength. This can start around 2 weeks. For some patients, it?s not necessary. Usually this is determined at the time of discharge or at the first post-operative visit. - You should wear the TIFFANI hose on both legs for 2 weeks. Dressing: Keep the surgical dressing in place for at least one week. After the first week it may be removed and replace with light gauze and tape or nothing. It may get wet after 3 days but avoid soaking the dressing. If it gets wet, just lightly pat dry. It is important to always keep some gauze between skin folds, especially when you are sitting. Spend some time with the wound exposed when you are lying flat as the incision does wrinkle onto itself. Medications: - You should take Tylenol and an anti-inflammatory Celebrex as your primary pain control medications. If the Celebrex is too expensive or not covered, please call the office for another alternative (Advil/Ibuprofen or Naproxen/Aleve). - You have been prescribed a stronger pain medication Oxycodone for breakthrough pain, take as needed as prescribed. - You have also been prescribed a stomach acid reduction agent Pantoprozole to help reduce stomach acid and reflux. - You have also been prescribed Decadron to help with post-operative nausea and pain. You will take this for two days starting tomorrow. - You will be taking Aspirin 81mg twice a day for DVT prevention unless instructed otherwise. - If you have constipation you should take Colace or Miralax (both [id number]). It takes most people 3-4 days to have a bowel movement. Follow-up: 2 weeks If you have any acute concerns or questions, please do not hesitate to contact the office at [phone]. You may contact Dr. English with any questions after hours through the hospital at [phone] or on his cell phone at [phone]. Stand Alone Forms: Anesthesia Discharge Inst., Mary.Nerve Block Instructions, Leslie Garnett ([facility]) Referrals: Michael English MD [ [facility] STAFF PHYSICIAN] - 11/08/24 1:15 pm Equipment/Supplies: Walker Activity:: Activity as Tolerated Shower/Bathe:: 72 hours Activity:: Activity as Tolerated Equipment/Supplies:: No Equipment Needed Diet:: As Tolerated Discharge Orders Discharge Orders: Discharge Order (Routine); Ordered 10/24/24 Ordered By: Leonel Camejo DS: Summary Time Spent with Patient providing and/or coordinating discharge services: Less than 30 minutes Status at Discharge Functional status at discharge: uses cane/walker Overall status at discharge: patient is progressing back to baseline Mental Status: mental status grossly normal Speech and Movement: speech and movement normal Mood: congruent mood Affect: normal affect Quality:SDOH Health Related Social Needs: Health related social needs housing instability, house d, with risk of homelessness (Z59.811), feeling lonely/isolated (Z60.8) Exam Narrative Exam Narrative: Sitting up in the chair. NAD. AAOx3. RLE hip dressing is c/d/i although there is some ecchymosis of the proximal thigh. There is some soft tissue swelling at the distal 1/3 of the incision region. Thigh is compressible and soft. SILT Fem/Sciatic. +ADF/APF/EHL/FHL. Psych Mental Status: mental status grossly normal Speech and Movement: speech and movement normal Mood: congruent mood Affect: normal affect DS: Data Vitals/I&O Vitals and I&O: Vital Signs Temperature 36.2 C L 10/25/24 07:52 Temperature Source Temporal Artery Scan 10/25/24 07:52 Pulse 69 10/25/24 07:52 Pulse Rhythm Regular 10/24/24 15:42 Pulse 72 10/24/24 14:00 Respiratory Rate 16 10/25/24 07:52 Respiratory Effort Normal 10/24/24 15:42 Respiratory Depth Normal 10/24/24 15:42 Respiratory Pattern Normal 10/24/24 15:42 Blood Pressure 120/62 10/25/24 07:52 Blood Pressure Mean 81 10/25/24 07:52 Blood Pressure Position Left Lateral 10/24/24 12:37 Pulse Oximetry 94 10/25/24 07:52 Respiratory End-tidal CO2 42 10/24/24 14:00 Oxygen Delivery Method Room Air 10/25/24 07:52 Oxygen Flow Rate 0 10/25/24 07:52 Pain Level 5 10/25/24 09:21 Comment 1232 Contacted anesthesia regarding pain control. 1215 dose of oxycodone, no effect at this point. VSS. Pt reports 10/10 pain; crying. Repositioned in bed with no results. Decision made by anesthesia to return patient to PACU. IV LR reattached 250cc remaining. 1246 Handoff to Ashok Garcia RN. Cellphone and eyeglasses with patient. Walker and bag of belongings in DSU. 1305 MD updated on patient. 10/24/24 12:37 Intake & Output 10/24/24 10/25/24 10/25/24 23:59 11:59 23:59 Intake Total 715.000 / 1895.000 705 / 705 Balance 715.000 / 1795.000 705 / 705 Weight 91.626 kg Intake: IV 615.000 / 1545.000 5 / 5 Oral 100 / 350 700 / 700 Other: Urine Color Yellow Yellow Yellow Urine Appearance Clear Clear Clear Urine Odor Normal Normal Comment unmeasurable, pt voided into toilet. Emesis Description None PFSH All Active Problems History of total right hip replacement (Acute 10/24/24) Bilateral lower extremity edema (Acute) Right hip pain (Acute) Dyspnea (Acute) LUQ pain (Acute) Diverticula of intestine (Acute) Tubular adenoma (Acute) Muscle cramps at night (Acute) Osteoarthritis (Chronic) Increased BMI (Acute 07/29/14) Rosacea (Acute) Osteopenia (Acute) DEXA-04/16 Hypercholesterolemia (Acute) Gastroesophageal reflux disease with esophagitis (Acute) EGD 04/18 DM (diabetes mellitus) (Acute 05/02/14) Asthma (Acute) Medical History Cervical high risk HPV (human papillomavirus) test positive September 2022: Nl cytology/HPV+ (16/18/45 neg) -->colp: May 2022: Nl cytology/HPV+ (16/18/45 neg) 2016, 2013 and 2010 wnl. No hx abnl Depressive disorder Internal derangement of left knee Injection: 12/19/2018 Uterine leiomyoma ENLARGED UTERUS (cystic lestion) N/C in fibroid- U/S H/O balance disorder (02/09/18) Surgical History History of colonoscopy (~08/01/20) History of bronchoscopy History of ethmoidectomy Status post cataract extraction (08/26/14) right eye 2017 Ligation of fallopian tube 1980 NOSE RECONSTRUCTION Extraction of cataract 08/20/14 RIGHT EYE; DR. ATKINS Family History Mother , AGE 58 Diabetes Hyperlipidemia COPD (chronic obstructive pulmonary disease) Uterine cancer Breast cancer Ovarian cancer Father , AGE 68 Heart disease Throat cancer Sister No problems noted. Brother HIV (human immunodeficiency virus infection) Son No problems noted. Daughter Asthma Brother No problems noted. Maternal Grandfather No problems noted. Paternal Grandfather No problems noted. Maternal Grandmother No problems noted. Paternal Grandmother No problems noted. Social History Smoking/Tobacco Use Status: Never Second Hand Exposure: Yes Smoking risk assessment performed?: Yes Alcohol Intake: current Alcohol Intake frequency: holidays/special occasions only Alcohol type: beer and hard liquor Drug use: Never Substance use type: does not use Caregiver/Support person: No Household members: none Housing: house Communication Needs: None current occupation: TRANSIT COORDINATOR Pets and animals: Yes Pets and animals: cat(s) and dog(s) Sexually active: No Do you think of yourself as: straight/heterosexual Current gender identity: female What is your relationship status?: How often do you talk on the phone with friends or family?: three or more times per week How often do you get together with friends or relatives?: once per week How often do you attend judaism or jainism services?: decline to answer Do you belong to any clubs or organized social groups?: no Panel score (0-1 are the most socially isolated patients): 1 What type of physical activity do you participate in: none Frequency: does not exercise Shyanne/Voodoo: Religion Special shyanne needs: No Seatbelt use: always Helmet use: Yes Helmet use: sometimes Drive intox or ride w/intox garbage collector driver: No Water heater temp set <120 deg: Yes Working smoke detector in home: Yes Fire extinguisher in home: Yes Carbon monox detector in home: Yes Firearms in home: Yes Firearms unloaded and locked: Yes Do you feel safe at home: Yes Do you feel safe in your relationship?: Yes Victim of physical abuse: No Victim of emotional abuse: No Victim of sexual abuse: No Additional Social history: lives alone Female Reproductive History Menstrual control method: none History History 2 3 Para 2 Hx # Term Pregnancies 2 Multiple births Hx # Pregnancies Ectopic pregnancies AB induced Hx Number of Living Children 2 AB spontaneous 1 Past Pregnancies Del. Date GA/Weeks # Preg Succ Route Wgt Sex Labor Lgth Anesth esia Location [facility] [birth year] 40 Yes vaginal 4904.467 g Male Felipe Time Spent with Patient Time Spent with Patient: <45 minutes Time was spent: preparing to see the patient(eg.review tests), obtaining and/or reviewing separately otained hiistory and counseling the patient
--- NOTE | 2024-10-25 14:30 | CMDISCH_ITS ---
Date of service: 10/25/24 Time of Service: 14:31 LACE Index Scoring Tool Questions: Length of Stay (in days): 1 Was the patient admitted via the E.D.?: No Comorbidities: Diabetes w/o Complication E.D. Visits: 1 Answers: Total Score: 3 Risk of Readmission: Low Risk Care Management Discharge Plan Reason for Hospitalization: OA R Hip Discharge Plan: Ariadne will discharge home today, and will begin out patient PT in 2 weeks. She will follow up with her community provider, surgeon, and continue per her plan of care as directed. She will be transported via private vehicle by family. Patient/Family Education Needs: Review of discharge instructions, activity, limitations, and plan of care. Discuss Ask Me Three. Services Needed at Discharge: Physical Therapy SDOH Health Related Social Needs: Health related social needs housing instability, house d, with risk of homelessness (Z59.811), feeling lonely/isolated (Z60.8)
== END 2024-10-25 14:48 | disposition home or self-care (01) ==
LOC: SUR 10:06 → MS 15:24
PROVIDERS: Admitting Provider Student in an Organized Health Care Education/Training Program; PCP Nurse Practitioner Family; Visit Provider Student in an Organized Health Care Education/Training Program
PROC: (CPT 27130; principal; 2024-10-24 07:30)
DX: M16.11 Unilateral primary osteoarthritis, right hip (principal); F32.A Depression, unspecified; J45.909 Unspecified asthma, uncomplicated; E11.9 Type 2 diabetes mellitus without complications; K21.00 Gastro-esophageal reflux disease with esophagitis, without bleeding; E78.00 Pure hypercholesterolemia, unspecified; L71.9 Rosacea, unspecified; R60.0 Localized edema; Z79.84 Long term (current) use of oral hypoglycemic drugs
CPT/HCPCS: 27130; 20985; 94640; 96365; 96366; 97110; 97161; 97530; 99238; 73501; 73502; 94664; C1776; G0378; J0690; J1100; J2060; J2250; J2401; J2405; J2704; J3010; J8540

== ENCOUNTER 2024-11-06 01:45 | Outpatient (CLI) | payer MEDICARE, OTHER, SELFPAY ==
--- NOTE | 2024-11-06 07:15 | DI.RAD_ITS ---
Exam(s) XR FOOT LT COMPLETE EXAM: XR FOOT LT COMPLETE CLINICAL HISTORY: Left foot pain,m79.672. TECHNIQUE: 2D digital imaging was performed. COMPARISON: None of this foot FINDINGS: 3 views. There is soft tissue swelling of the dorsal aspect of the foot and there is pes planus evident on the lateral weight-bearing view. There is prominent hallux valgus noted as well as some degenerative change in the great toe metatarso phalangeal joint. At the midfoot level there is significant degenerative change in the 2nd and 3rd tarsometatarsal join ts, significant but less prominent than is evident at the same articulations of the opposite-right fo ot. The 4th and 5th tarsometatarsal joints appear unremarkable. There are moderate degenerative penny nges in the great toe tarsometatarsal joint between the base of the great toe and medial cuneiform. There is an enthesophyte on the posterior calcaneus insertion site of the Achilles tendon, similar to the opposite-right side. There is no inferior calcaneal spur on either side. IMPRESSION: Prominent hallux valgus. Significant degenerative changes at the and 3rd tarsometatarsal joints as well as at the 1st tarsomet atarsal joint, as described above. Other findings as above. DATA REPOSITORY: RADIATION DOSE DELIVERED:
--- NOTE | 2024-11-06 13:46 | DI.RAD_ITS ---
Exam(s) XR FOOT RT COMPLETE EXAM: XR FOOT RT COMPLETE CLINICAL HISTORY: Right foot pain,m79.672. TECHNIQUE: 2D digital imaging was performed. COMPARISON: X-rays of March 2013. FINDINGS: 3 views There is no evidence of acute fracture or diastasis of the Lisfranc joint. There is moderate hallux valgus evident. There has also been significant degenerative change in the midfoot tarsometatarsal j oints particularly of the 2nd and 3rd tarsometatarsal joints where there is significant joint space n arrowing and degenerative subarticular cysts on both sides of these joints. There are prominent dege nerative subarticular cysts on both sides of the 3rd tarsometatarsal joint. Slightly less at the 2nd TMT joint but advanced narrowing of this articulation is evident. Mild degenerative changes evident at the other TMT joints. In addition there is pes planus now evident on the lateral weight-bearing view. An accessory ossicle s again noted lateral to the cuboid bone, unchanged. There is a hammertoe deformity of the 2nd toe e vident. IMPRESSION: Significant progression of midfoot degenerative changes when compared to 1999, most evident in the 2nd and 3rd tarsometatarsal joints. Also significant progression of hallux valgus since 2012. There is no pes planus. DATA REPOSITORY: RADIATION DOSE DELIVERED:
== END 2024-11-06 02:05 ==
LOC: DI 01:46
PROVIDERS: PCP Nurse Practitioner Family; Visit Provider Podiatrist
DX: M79.671 Pain in right foot (principal); M79.672 Pain in left foot; M20.12 Hallux valgus (acquired), left foot; M20.11 Hallux valgus (acquired), right foot; R60.0 Localized edema; E11.9 Type 2 diabetes mellitus without complications; M85.871 Other specified disorders of bone density and structure, right ankle and foot; M85.872 Other specified disorders of bone density and structure, left ankle and foot
CPT/HCPCS: 99214; 73630

== ENCOUNTER 2024-11-08 13:55 | Outpatient (CLI) | payer MEDICARE, OTHER, SELFPAY ==
--- NOTE | 2024-11-08 14:03 | DI.RAD_ITS ---
Exam(s) XR HIP RT COMPLETE AP PELVIS EXAM: XR HIP RT COMPLETE AP PELVIS CLINICAL HISTORY: 1ST POST OP S/P R MARISOL. TECHNIQUE: 2D digital imaging was performed. COMPARISON: CR XR HIP RT AP LAT ONLY from 10/24/2024 FINDINGS: Two views Stable position alignment of the components of the recently placed right hip prosthesis. No fracture or loosening. No radiographic change compared to postop images of 10/24/2024 IMPRESSION: Stable satisfactory appearance DATA REPOSITORY: RADIATION DOSE DELIVERED:
== END 2024-11-08 13:56 | disposition home or self-care (01) ==
LOC: DIORS 13:55
PROVIDERS: PCP Nurse Practitioner Family; Referring Provider Nurse Practitioner Family; Visit Provider Physician Assistant
DX: Z96.641 Presence of right artificial hip joint (principal); Z47.1 Aftercare following joint replacement surgery
CPT/HCPCS: 99024; 73502

== ENCOUNTER 2024-12-03 02:44 | Outpatient (CLI) | payer MEDICARE, OTHER, SELFPAY ==
--- NOTE | 2024-12-03 06:30 | DI.MRI_ITS ---
Exam(s) MR ABDOMEN WO/W EXAM: MR ABDOMEN WO/W CLINICAL HISTORY: Pancreatic cysts,k86.2,6 mo f/u TECHNIQUE: Multiplanar multisequence MRI of the Abdomen was performed. MRCP sequence also performed. CONTRAST MATERIAL: IV Contrast: 19 mL of Dotarem contrast administered. COMPARISON: CT CT CHEST/ABD/PEL W from 06/18/2024 MR MR ABDOMEN WO/W from 07/13/2024 FINDINGS: Lung bases: Unremarkable. Liver: Unremarkable. Pancreas: Atrophic. Stable size and appearance of previously noted cyst in the tail of the pancreas. Stable size and appearance of cyst at the proximal body of the pancreas. The larger cyst measures 2.5 cm in maximal dimension. No suspicious mass. No pancreatic ductal dilatation. Gallbladder and Bile Ducts: Unremarkable. Adrenals: Unremarkable. Kidneys: Unremarkable. Spleen: Unremarkable. Aorta: Unremarkable. Soft Tissues: Unremarkable. Bone: Unremarkable. Lymph Nodes: Unremarkable. Stomach and bowel: Unremarkable. Peritoneal cavity: Unremarkable. No evidence of ascites. Bowel: Severe diverticulosis of the transverse colon. IMPRESSION: Stable pancreatic cysts. Six-month follow-up recommended. DATA REPOSITORY:
[2024-12-03] MEDS: Normal Saline - Diluent 50 ML VIAL IJ (08:09)
[2024-12-03] MEDS: Gadoterate meglumine 20 ML VIAL 19 ML IVP (08:10)
== END 2024-12-03 03:04 ==
PROVIDERS: PCP Nurse Practitioner Family; Visit Provider Nurse Practitioner Family
DX: K86.2 Cyst of pancreas (principal)
CPT/HCPCS: 74183; 99024; 73502

== ENCOUNTER 2024-12-03 09:55 | Outpatient (CLI) | payer MEDICARE, OTHER, SELFPAY ==
--- NOTE | 2024-12-03 09:45 | DI.RAD_ITS ---
Exam(s) XR HIP RT AP LAT ONLY EXAM: XR HIP RT AP LAT ONLY INDICATION: RIGHT HIP PAIN. COMPARISON: CR XR PELVIS AP from 10/08/2024 XA XR HIP RT IN OR from 10/24/2024 CR XR HIP RT AP LAT ONLY from 10/24/2024 CR XR HIP RT COMPLETE AP PELVIS from 11/08/2024 TECHNIQUE: 2D digital imaging was performed. Two views. FINDINGS: Stable alignment of right hip prosthesis. No abnormal surrounding bony lucencies. DATA REPOSITORY: RADIATION DOSE DELIVERED:
== END 2024-12-03 09:56 | disposition home or self-care (01) ==
LOC: DIORS 09:56
PROVIDERS: PCP Nurse Practitioner Family; Referring Provider Nurse Practitioner Family; Visit Provider Student in an Organized Health Care Education/Training Program
DX: Z47.1 Aftercare following joint replacement surgery (principal); Z96.641 Presence of right artificial hip joint
CPT/HCPCS: 99024; 73502

== ENCOUNTER → 2025-01-14 14:56 | Outpatient (BNVA) | payer MEDICARE, OTHER, SELFPAY | PROVIDERS: PCP Nurse Practitioner Family; Referring Provider Nurse Practitioner Family; Visit Provider Student in an Organized Health Care Education/Training Program | DX: Z47.1 Aftercare following joint replacement surgery (principal); Z96.641 Presence of right artificial hip joint; M70.72 Other bursitis of hip, left hip; M70.62 Trochanteric bursitis, left hip | CPT/HCPCS: 99213 ==

== ENCOUNTER → 2025-03-18 14:52 | Outpatient (BNVA) | payer MEDICARE, OTHER, SELFPAY | PROVIDERS: PCP Nurse Practitioner Family; Referring Provider Nurse Practitioner Family; Visit Provider Physician Assistant | DX: M70.62 Trochanteric bursitis, left hip (principal); Z96.641 Presence of right artificial hip joint | CPT/HCPCS: 99213 ==